=== PATIENT | female | born 1935 | race Caucasian/White ===

== ENCOUNTER 2023-03-08 10:21 | Inpatient (IN) | payer OTHER, SELFPAY ==
[2023-03-08] VITALS (18 sets, daily range): BP systolic 133–162; BP diastolic 59–99; PULSE 57–113; RESP 16–32; TEMP 36.2–37.2; O2SAT 91–100; BMI 21.8
--- NOTE | ~2023-03-08 | US_ITS ---
EXAMINATION: US venous doppler [facility] DATE: 03/09/2023 10:40 INDICATION: Bilateral lower limb swelling TECHNIQUE: Grayscale ultrasound images without and with compression and Doppler ultrasound images of the bilateral lower extremity veins were obtained. COMPARISON: None. FINDINGS: The visualized portions of right common femoral vein, profunda (deep) femoral vein, femoral vein, pop liteal vein, posterior tibial veins, peroneal veins, gastrocnemius vein and greater saphenous vein ou tflow are patent. The visualized portions of left common femoral vein, profunda femoral vein, femoral vein, popliteal v ein, posterior tibial veins, peroneal veins, gastrocnemius vein and greater saphenous vein outflow ar e patent. IMPRESSION: 1. No deep venous thrombosis in either lower limb. Reviewed, dictated and finalized at location A.
--- NOTE | ~2023-03-08 | XR_ITS ---
EXAMINATION: XR chest 1V portable DATE: 03/08/2023 11:29 INDICATION: Shortness of breath. TECHNIQUE: A single frontal view of the chest was obtained. COMPARISON: Chest single view 10/21/2018, chest CT 06/03/2019 FINDINGS: The patient is rotated to her left. There are peripheral interstitial opacities in the lung s bilaterally. There are airspace opacities at the lung bases. No pleural effusion or pneumothorax. C ardiomegaly is noted. The central pulmonary arteries are enlarged, consistent with pulmonary arterial hypertension. There is a large hiatal hernia. IMPRESSION: 1. Peripheral interstitial opacities in the lungs and airspace opacities at the lung bases, likely ch ronic lung disease and atelectasis. Pneumonia cannot be excluded. 2. Large hiatal hernia. 3. Cardiomegaly. Reviewed, dictated and finalized at location A. IMPRESSION: 1. Peripheral interstitial opacities in the lungs and airspace opacities at the lung bases, likely chronic lung disease and atelectasis. Pneumonia cannot be e xcluded. 2. Large hiatal hernia. 3. Cardiomegaly.
--- NOTE | 2023-03-08 10:40 | ECG_ITS ---
Measurements Intervals [place] Rate: 111 P: -29 WY: 169 QRS: -18 QRSD: 89 T: -33 QT: 343 QTc: 467 Interpretive Statements SINUS TACHYCARDIA VOLTAGE CRITERIA FOR LVH NONSPECIFIC T-WAVE ABNORMALITY Electronically Signed On 03-08-2023 13:02:36 CDT by Ariel Blankenship M.D.
--- NOTE | 2023-03-08 10:58 | ED.SOB ---
HPI - SOB/Dyspnea General Chief Complaint: Shortness of Breath/Dyspnea Stated Complaint: SOB, tachycardia Time Seen by Provider: 03/08/23 10:31 Source: patient, EMS and RN notes reviewed Mode of arrival: EMS Limitations: other (poor historian) History of Present Illness HPI Narrative: This is an 87 year old female with history of chronic respiratory failure on 3 L NC who presents for eveluation of shortness of breath. PAtient states she has been having difficulty breathing for 1 few days. She reports cough mostly in the morning. She denies chest pain. She was given duoneb by EMS for her shortness of breath. She denies fever or chills. She states she has pain to bilateral ribs intermittently with coughing. She also has bilateral ankle swelling. Related Data Home Medications Medication Instructions Recorded Confirmed acetaminophen 325 mg tablet 650 mg PO Q6H PRN Pain (Scale 03/08/23 03/08/23 Score 1-3) albuterol sulfate 90 mcg/actuation 2 puff inhalation QID PRN 03/08/23 03/08/23 aerosol inhaler Shortness Of Breath allopurinol 100 mg tablet 100 mg PO DAILY 03/08/23 03/08/23 alprazolam 0.25 mg tablet (Xanax) 0.25 mg PO TID 03/08/23 03/08/23 alprazolam 0.5 mg tablet (Xanax) 0.5 mg PO TID 03/08/23 03/08/23 aluminum-mag hydroxide-simethicone 15 ml PO QID PRN Acid Reflux 03/08/23 03/08/23 200 mg-200 mg-20 mg/5 mL oral susp artificial tears with lanolin eye 1 applic EACH EYE Q1-4H PRN Dry 03/08/23 03/08/23 ointment Eye(S) bisacodyl 10 mg rectal suppository 10 mg RECTAL DAILY PRN Constipation 03/08/23 03/08/23 clopidogrel 75 mg tablet 75 mg PO DAILY 03/08/23 03/08/23 clotrimazole-betamethasone 1 1 applic topical BID PRN Dry Skin 03/08/23 03/08/23 %-0.05 % topical cream cyanocobalamin (vitamin B-12) 1,000 mcg PO DAILY 03/08/23 03/08/23 1,000 mcg tablet ferrous sulfate 325 mg (65 mg 325 mg PO DAILY 03/08/23 03/08/23 iron) tablet fluticasone propionate 50 2 spray intranasal DAILY 03/08/23 03/08/23 mcg/actuation nasal spray,suspension (Flonase Allergy Relief) furosemide 20 mg tablet 20 mg PO DAILY 03/08/23 03/08/23 guaifenesin 100 mg/5 mL oral liquid 200 mg PO Q4H PRN Congestion 03/08/23 03/08/23 hydrocodone 5 mg-acetaminophen 325 1 tablet PO HS 03/08/23 03/08/23 mg tablet ipratropium 0.5 mg-albuterol 3 mg 3 ml inhalation Q6H PRN Shortness 03/08/23 03/08/23 (2.5 mg base)/3 mL nebulization Of Breath soln levothyroxine 100 mcg tablet 100 mcg PO 0600 03/08/23 03/08/23 melatonin 3 mg tablet 3 mg PO HS 03/08/23 03/08/23 metoprolol succinate 100 mg 100 mg PO DAILY 03/08/23 03/08/23 tablet,extended release 24 hr multivitamin with minerals (Daily 1 tablet PO DAILY 03/08/23 03/08/23 Multivitamin-Minerals tablet) nitroglycerin 0.4 mg sublingual 0.4 mg sublingual Q5-15M PRN Chest 03/08/23 03/08/23 tablet Pain olopatadine 0.1 % eye drops 1 drp EACH EYE DAILY 03/08/23 03/08/23 omeprazole 20 mg tablet,delayed 20 mg PO 0600 03/08/23 03/08/23 release potassium chloride 20 mEq 40 meq PO DAILY 03/08/23 03/08/23 tablet,extended release sennosides 8.6 mg tablet (senna) 8.6 mg PO HS 03/08/23 03/08/23 sertraline 50 mg tablet 50 mg PO DAILY 03/08/23 03/08/23 simethicone 80 mg chewable tablet 80 mg PO DAILY PRN Abdominal 03/08/23 03/08/23 Discomfort sodium chloride 0.65 % nasal spray 2 spray intranasal Q2H PRN Dry 03/08/23 03/08/23 aerosol Nasal Passages tolterodine 2 mg tablet 2 mg PO DAILY 03/08/23 03/08/23 Allergies Allergy/AdvReac Type Severity Reaction Status Date / Time codeine Allergy Unknown Unknown Verified 03/08/23 15:16 lovastatin Allergy Unknown Verified 03/08/23 15:37 Penicillins Allergy Unknown Verified 03/08/23 15:37 Contrast Media Allergy Unknown Unknown Uncoded 06/26/21 15:33 Review of Systems Constitutional: Constitutional: Denies weakness Cardiovascular: Cardiovascular: Denies syncope, Denies rapid heart rate, Denies irregular heart rhythm, Denies leg edema and Reports dyspnea Re
[2023-03-08 11:01] LABS: Basophils Absolute Auto 0.1 K/mm3 (0.0-0.1); Basophils Percent Auto 0.6 % (0.2-1.2); Eosinophils Absolute Auto 0.2 K/mm3 (0-0.3); Eosinophils Percent Auto 2.4 % (0-4.4); Hematocrit 37.7 % (37.0-47.0); Hemoglobin 11.4 g/dL (12.0-15.0); Immature Granulocyte Absolute 0.02 K/mm3 (0.00-0.031); Immature Granulocyte Percent A 0.3 % (0-0.5); Lymphocytes Absolute Auto 2.08 K/mm3 (0.9-3.2); Lymphocytes Percent Auto 26.2 % (18.3-44.2); Mean Corpuscular HGB Conc 30.2 g/dl (32-36); Mean Corpuscular Hemoglobin 31.1 pg (26-34); Mean Platelet Volume 11.5 fl (7.4-10.4); Monocytes Absolute Auto 0.6 K/mm3 (0.1-0.6); Monocytes Percent Auto 7.1 % (2.6-8.5); Neutrophils Percent Auto 63.4 % (45.5-73.1); Platelet Count Result 170 k/mm3 (150-375); Red Blood Count 3.66 M/mm3 (4.2-5.4); Red Cell Distribution Width 13.6 % (11.5-14.5); White Blood Count 7.9 K/mm3 (4.5-10.0)
[2023-03-08 11:09] LABS: Prothrombin Time 13.5 Seconds (11.1-14.7)
[2023-03-08 11:11] LABS: Partial Thromboplastin Time 24.7 SECONDS (22.3-36.8)
[2023-03-08 11:12] LABS: Alveolar/Arterial O2 Gradient 76.6 mmHg; Base Excess ABG 3.9 mEq/l (+/-2.0); Carboxyhemoglobin 0.6 % THb (0-2.0); Fractional Inspired Oxygen 32 %; HCO3 ABG 28.3 mEq/l (22.0-26.0); Methemoglobin ABG 0.2 %THb (0-1.5); Oxygen Content ABG 17.5 %vol (16.0-22.0); Oxygen Saturation ABG 97.9 % (95.0-100.0); Oxyhemoglobin 96.6 % THb (90.0-100.0); PCO2 ABG 41.9 mmHg (35.0-45.0); PO2 ABG 102.5 mmHg (80.0-100.0); Reduced Hemoglobin 2.6 %THb (0-5.0); Total Hemoglobin 12.8 g/dL (12.0-18.0); pH ABG 7.448 (7.350-7.450)
[2023-03-08 11:12] LABS: Alanine Aminotransferase 14 U/L (6-35); Albumin Level 3.8 g/dL (3.5-5.1); Alkaline Phosphatase 62 U/L (38-126); Anion Gap 5 mmol/L (8-16); Aspartate Amino Transferase 30 U/L (14-36); Bilirubin,Total 0.5 mg/dL (0.2-1.3); Blood Urea Nitrogen 21 mg/dL (7-17); Calcium 9.9 mg/dL (8.4-10.2); Carbon Dioxide 33 mmol/L (22-30); Chloride 100 mmol/L (98-107); Estimated CRCL calculation 35 ml/min; Estimated Glomerular Filt Rate > 60; Glucose 143 mg/dL (65-110); Potassium 3.7 mmol/L (3.4-5.0); Sodium 138 mmol/L (137-145)
[2023-03-08 11:14] LABS: Device NASAL CANNULA; Modified Allen's Test Pass; Site Drawn LEFT RADIAL
[2023-03-08 11:28] LABS: NT Pro B Type Natriuretic Pept 4730 pg/mL (19.9-100); Troponin I 0.139 ng/mL (0.000-0.034)
[2023-03-08 11:35] LABS: Influenza A QL RT-PCR Negative (Negative); Influenza B QL RT-PCR Negative (Negative); SARS-CoV-2 RNA PCR Negative (Negative)
[2023-03-08] MEDS: FUROSEMIDE INJ 40 MG/4 ML VIAL IV PUSH ×2 (11:41→20:31)
[2023-03-08] MEDS: METOPROLOL TARTRATE INJ 5 MG/5 ML VIAL IV PUSH (11:41)
--- NOTE | 2023-03-08 11:58 | PC.NURSE ---
Purewik placed for incontinence and patient comfort after given Lasix.
[2023-03-08 13:15] LABS: Glucose Point of Care 131 mg/dl (65-105)
--- NOTE | 2023-03-08 13:59 | ADMGEN ---
This patient, Zoya Cantor, was admitted to IMU Room 203-01. Patient/family oriented to hospital policies and general routines including ID bracelet, bed and alarms, visiting hours, pain management, procedures, bathroom and other care routines, personal items, smoking policy, room service/diet, and visiting hours. Information on how to activate the Rapid Response Team has been discussed. Patient/Family are encouraged to report perceived risks to care and to ask questions if they do not understand what they are told or what they should do.
[2023-03-08 14:08] LABS: Troponin I 0.114 ng/mL (0.000-0.034)
--- NOTE | 2023-03-08 14:18 | PM.IMHP ---
H&P: HPI History of Present Illness Date/Time: 03/08/23 14:00 Chief Complaint: Shortness of breath and rapid heart rate. Narrative: This is a very pleasant 87-year-old female with chronic respiratory failure on oxygen, chronic obstructive pulmonary disease, coronary artery disease, diastolic congestive heart failure, paroxysmal supraventricular tachycardia, hypertension, hyperlipidemia, hypothyroidism, and anxiety who presented to the emergency department via EMS for evaluation of shortness of breath and rapid heart rate. The patient provides the following history. She does not sleep well most nights. It is apparently the norm for her to have indigestion when going to bed and that keeps her awake for awhile. She will eventually drift off to sleep though she will wake up at least once a night to use the restroom. Most of the time when she gets up at night to go to the bathroom her heart starts to beat rapidly and it is sometimes a few minutes or couple of hours before it slows down. She feels anxious when her heart is racing and turned she does not fall back asleep. Last night her heart started to race even before she got up to go to the bathroom and she was having difficulties getting into slow down (sometime she is able to get it to slow down if she lies on her right side and takes slow, deep breaths). Her heart continued to race even after taking her morning medications and when she reported that she was feeling more short of breath she was sent in for evaluation. EKG on arrival showed a sinus tachycardia however the ED physician thought she may have gone into atrial fibrillation for brief period of time. IV Lopressor 5 mg x 1 was given with improvement in her heart rate. Vital signs have been stable since arrival. Labs were significant for a troponin of 0.139 and a proBNP of 4730. IV Lasix as well and she is being admitted in this setting for further monitoring. Review of Systems Review of Systems: Twelve systems were reviewed. No fever, chills, or sweats. No recent cold or flu symptoms. She has remained she denies that her roommate has been sick. No exertional chest pain or pleuritic pain. Endorses paroxysmal nocturnal dyspnea. Occasional omaira ankle edema which is unchanged. No known history of sleep apnea. Except as documented, all other systems were reviewed and are negative. [facility] Past Medical History Medical History (Updated 03/08/23 @ 20:35 by Xochilt Hoyos PA-C) Anxiety Atrial fibrillation Chronic obstructive pulmonary disease Chronic respiratory failure with hypoxia, on home oxygen therapy Coronary artery disease With reported history of myocardial infarction. Degenerative joint disease Diastolic congestive heart failure Gout Hyperlipidemia Hypertension Hypothyroidism Osteoporosis Paroxysmal supraventricular tachycardia Scoliosis Surgical History Surgical History History of right hip replacement Family History Family History Father , age 41. Acute myocardial infarction Social History Social History Social History: Surrogate medical decision maker: Anup Cantor, son. Code status: Do not resuscitate. Smoking packs per day: 0.5 Smoking cigarettes per day: 10.0 Years smoked: 60 Smoking pack-years: 30.00 Smoking status: Never smoker Alcohol intake: never Substance use: never Lack of Transportation: No Lack of Food: Never True Current Housing: I Have Housing Concerned About Future Housing: No Difficulty Paying Gas/Electric Bills: No Difficulty Paying for Meds: No Currently Unemployed: No Education: High School Diploma/GED Difficulty w/ Childcare or Family Care: No Spiritual care concerns: No Meds Home Medications and Allergies Home Medications Medication Instructions Recorded
[2023-03-08 16:52] LABS: Glucose Point of Care 92 mg/dl (65-105)
[2023-03-08 17:53] LABS: Troponin I 0.163 ng/mL (0.000-0.034)
[2023-03-08 20:28] LABS: Glucose Point of Care 133 mg/dl (65-105)
[2023-03-08] MEDS: MELATONIN 3 MG TABLET PO (20:30)
[2023-03-08] MEDS: SENNOSIDES 8.6 MG TABLET PO (20:30)
[2023-03-08] MEDS: HYDROcodone/acetaminophen (*CRX) 5-325 MG TABLET 1 TAB PO (20:31)
[2023-03-08] MEDS: ALPRAZolam (*CRX) 0.5 MG TABLET PO (21:03)
[2023-03-08] MEDS: ALPRAZolam (*CRX) 0.25 MG TABLET PO (21:04)
[2023-03-09] VITALS (16 sets, daily range): BP systolic 117–143; BP diastolic 55–83; PULSE 54–118; RESP 16–24; TEMP 36.1–36.6; O2SAT 91–100
[2023-03-09] MEDS: LEVOTHYROXINE SODIUM 100 MCG TABLET PO (05:47)
[2023-03-09] MEDS: PANTOPRAZOLE 40 MG TABLET PO (05:47)
[2023-03-09 06:18] LABS: Basophils Percent Auto 0.6 % (0.2-1.2); Eosinophils Absolute Auto 0.2 K/mm3 (0-0.3); Eosinophils Percent Auto 3.2 % (0-4.4); Hemoglobin 11.7 g/dL (12.0-15.0); Immature Granulocyte Absolute 0.04 K/mm3 (0.00-0.031); Immature Granulocyte Percent A 0.6 % (0-0.5); Lymphocytes Absolute Auto 2.05 K/mm3 (0.9-3.2); Lymphocytes Percent Auto 28.5 % (18.3-44.2); Mean Corpuscular HGB Conc 30.8 g/dl (32-36); Mean Corpuscular Volume 100.8 fl (80-100); Mean Platelet Volume 11.5 fl (7.4-10.4); Monocytes Absolute Auto 0.7 K/mm3 (0.1-0.6); Monocytes Percent Auto 9.2 % (2.6-8.5); Neutrophils Absolute Auto 4.2 K/mm3 (1.3-6.7); Neutrophils Percent Auto 57.9 % (45.5-73.1); Platelet Count Result 174 k/mm3 (150-375); Red Blood Count 3.77 M/mm3 (4.2-5.4); Red Cell Distribution Width 13.7 % (11.5-14.5); White Blood Count 7.2 K/mm3 (4.5-10.0)
[2023-03-09 06:34] LABS: Alanine Aminotransferase 13 U/L (6-35); Albumin Level 3.8 g/dL (3.5-5.1); Alkaline Phosphatase 63 U/L (38-126); Aspartate Amino Transferase 33 U/L (14-36); Bilirubin,Total 0.6 mg/dL (0.2-1.3); Blood Urea Nitrogen 21 mg/dL (7-17); Calcium 10.4 mg/dL (8.4-10.2); Carbon Dioxide > 40 mmol/L (22-30); Chloride 97 mmol/L (98-107); Estimated CRCL calculation 28 ml/min; Estimated Glomerular Filt Rate 53; Glucose 105 mg/dL (65-110); Magnesium 1.6 mg/dL (1.6-2.3); Potassium 3.9 mmol/L (3.4-5.0); Sodium 139 mmol/L (137-145)
[2023-03-09 07:28] LABS: Glucose Point of Care 112 mg/dl (65-105)
[2023-03-09 07:37] LABS: Free T4 Free Thyroxine Reflex 0.99 ng/dL (0.78-2.19)
[2023-03-09 08:17] LABS: Total Triiodothyronine (T3) 0.96 NG/ML (0.97-1.69)
[2023-03-09] MEDS: allopurinoL 100 MG TABLET PO (08:52)
[2023-03-09] MEDS: FUROSEMIDE 20 MG TABLET PO (08:52)
[2023-03-09] MEDS: CLOPIDOGREL BISULFATE 75 MG TABLET PO (08:52)
[2023-03-09] MEDS: FERROUS SULFATE 325 MG TABLET DR PO (08:52)
[2023-03-09] MEDS: POTASSIUM CHLORIDE 20 MEQ ER TABLET 40 MEQ PO (08:52)
[2023-03-09] MEDS: THERAPEUTIC MULTIVITAMINS/MINERALS TAB (*BKC) 1 TABLET PO (08:52)
[2023-03-09] MEDS: TOLTERODINE TARTRATE 2 MG TABLET PO (08:52)
[2023-03-09] MEDS: ALPRAZolam (*CRX) 0.5 MG TABLET PO ×3 (08:52→17:21)
[2023-03-09] MEDS: METOPROLOL SUCCINATE EXT REL 100 MG TABCR PO (08:52)
[2023-03-09] MEDS: ALPRAZolam (*CRX) 0.25 MG TABLET PO ×3 (08:52→17:21)
[2023-03-09] MEDS: CYANOCOBALAMIN 1,000 MCG TABLET 1000 MCG PO (08:52)
[2023-03-09] MEDS: SERTRALINE HCL 50 MG TABLET PO (08:52)
[2023-03-09] MEDS: FLUTICASONE PROPIONATE 0.05% NA SPR 16 GM BTL (*BKC) 2 SPRAY NASAL (08:53)
[2023-03-09] MEDS: OLOPATADINE 0.1% OPHTH SOLN 5 ML BTL 1 DROP EACH EYE (08:53)
[2023-03-09] MEDS: ENOXAPARIN 40 MG/0.4 ML SYRINGE SUB-Q (08:53)
--- NOTE | 2023-03-09 09:07 | PM.CNCAR ---
Assessment and Plan Assessment and plan (1) Atrial tachycardia: Code(s): I47.19 - Other supraventricular tachycardia Status: Acute Assessment and Plan: Review of telemetry and prior medical records clearly indicate paroxysmal supraventricular tachycardia most likely atrial tachycardia. I do not see or have documented evidence of atrial fibrillation despite suspicion mentioned years ago in the record. Either way, patient had previously been deemed a poor anticoagulation candidate given her fall risk, advanced age and questionable presence of AFib. Continue telemetry for now. Increase metoprolol succinate to 125 mg daily. Monitor tolerance closely. Further up titrate as warranted. ED very cautious with additional antiarrhythmic and or AV node blocking agents given her advanced age yet this may be necessary as she has had frequent recurrent episodes of symptomatic atrial tachycardia. Consider EP evaluation as an outpatient although conservative management would be recommended given her DNR status. As she has already received Toprol XL 100 mg daily. Will give an additional 25 mg daily and observe tolerance. May increase to 150 mg daily starting tomorrow if she continues to have frequent episodes and tolerates this well otherwise. TSH mildly elevated 8.5. This certainly can contribute to increased arrhythmia risk. Levothyroxine management/adjustment per primary service. Continue to monitor electrolytes closely. Check magnesium. Potassium stable thus far. (2) Elevated troponin: Code(s): R79.89 - Other specified abnormal findings of blood chemistry Status: Acute Assessment and Plan: Mild relatively flat troponin elevation without evidence of acute coronary syndrome and/or plaque rupture most likely consistent with type 2 infarction in setting of recurrent tachyarrhythmia with SVT/atrial tachycardia, known underlying CAD and demand ischemia. Patient is not reporting anginal symptoms nor is her ECG consistent with acute ischemic changes. Continue clopidogrel 75 mg daily antiarrhythmic therapy. DVT prophylaxis. She is apparently intolerant to statin therapy. Repeat 2D echocardiogram to assess LV function, wall motion abnormalities, valve pathology pulmonary pressures. Recommendation to follow after review. We have no plans for invasive angiography or ischemic workup as she is not complaining of anginal symptoms and given her DNR status and advanced age. (3) Chronic respiratory failure with hypoxia, on home oxygen therapy: Code(s): J96.11 - Chronic respiratory failure with hypoxia; Z99.81 - Dependence on supplemental oxygen Status: Acute Assessment and Plan: Continue O2 supplementation. Bronchodilator therapy is indicated per primary service. (4) Congestive heart failure: Qualifiers: Heart failure type: diastolic Heart failure chronicity: chronic Qualified Code(s): I50.32 - Chronic diastolic (congestive) heart failure Code(s): I50.9 - Heart failure, unspecified Status: Acute Assessment and Plan: Despite elevated proBNP patient clinically does not appear to be significantly volume overload. I would recommend caution in this regard. May continue Lasix 20 mg daily which is part of her outpatient regimen. Continue conservative management. Monitor volume status. (5) Coronary artery disease: Qualifiers: Coronary Disease-Associated Artery/Lesion type: [place] artery [place] vs. transplanted heart: [place] heart Associated angina: without angina Qualified Code(s): I25.10 - Atherosclerotic heart disease of [place] coronary artery without angina pectoris Code(s): I25.10 - Atherosclerotic heart disease of [place] coronary artery without angina pectoris Status: Acute Assessment and Plan: Patient has reported history of underlying CAD managed medically. She is not presenting with symptoms suggestive acute coronary syndrome. Mild elevated t
[2023-03-09] MEDS: METOPROLOL SUCCINATE EXT REL 25 MG TABCR PO (11:35)
[2023-03-09 12:33] LABS: Glucose Point of Care 155 mg/dl (65-105)
--- NOTE | 2023-03-09 12:59 | PM.IMPN ---
Progress Note: A&P Assessment and Plan (1) Atrial tachycardia: Code(s): I47.19 - Other supraventricular tachycardia Status: Acute (2) Congestive heart failure: Qualifiers: Heart failure chronicity: chronic Heart failure type: diastolic Qualified Code(s): I50.32 - Chronic diastolic (congestive) heart failure Code(s): I50.9 - Heart failure, unspecified Status: Acute (3) Atrial fibrillation: Code(s): I48.91 - Unspecified atrial fibrillation Status: Acute (4) Tachycardia: Code(s): R00.0 - Tachycardia, unspecified Status: Acute (5) Elevated troponin: Code(s): R79.89 - Other specified abnormal findings of blood chemistry Status: Acute (6) Coronary artery disease: Qualifiers: Coronary Disease-Associated Artery/Lesion type: [place] artery [place] vs. transplanted heart: [place] heart Associated angina: without angina Qualified Code(s): I25.10 - Atherosclerotic heart disease of [place] coronary artery without angina pectoris Code(s): I25.10 - Atherosclerotic heart disease of [place] coronary artery without angina pectoris Status: Acute (7) Diastolic congestive heart failure: Code(s): I50.30 - Unspecified diastolic (congestive) heart failure Status: Acute (8) Hypothyroidism: Code(s): E03.9 - Hypothyroidism, unspecified Status: Acute (9) Chronic respiratory failure with hypoxia, on home oxygen therapy: Code(s): J96.11 - Chronic respiratory failure with hypoxia; Z99.81 - Dependence on supplemental oxygen Status: Acute (10) Chronic obstructive pulmonary disease: Code(s): J44.9 - Chronic obstructive pulmonary disease, unspecified Status: Acute (11) Hyperlipidemia: Qualifiers: Hyperlipidemia type: mixed hyperlipidemia Qualified Code(s): E78.2 - Mixed hyperlipidemia Code(s): E78.5 - Hyperlipidemia, unspecified Status: Acute (12) Hypertension: Qualifiers: Hypertension type: primary hypertension Qualified Code(s): I10 - Essential (primary) hypertension Code(s): I10 - Essential (primary) hypertension Status: Acute Plan 1. Atrial tachycardia Discussed pt with cardiology, appreciate their consultation They feel this is atrial tach, vs. MAT or afib. Currently on metop 100 ER. This has been increased to metop 125 ER, with possible increase to 150 ER May need amiodarone or additional antiarrhythmic agents At 87, unlikely to develop pulmonary fibrosis or hypothyroidism with long-term use- however, she does have risk factors with COPD and a minor abnormality currently with her TSH/total t3. according to uptodate, she does not need treatment for subclinical hypothyroidism. her t3 may be decreased due to chronic illness - in this case, possible demand ischemia vs mild CHF May need EP evaluation outpt per cardiology she continues to go in and out of atrial tachycardia on exam, and has recurrent symptoms. She reports only xanax helps her--she should probably wean this down, because xanax can have rebound anxiety- which triggers her atrial tachycardia 2. Elevated troponin Most likely demand ischemia 2 to atrial tachycardia with hx of underlying CAD Pt does not report angina and does not have EKG findings of ischemia Already on plavix and beta jany F/u echo. However, per cardiology, will likely not intervene on a WMA with her DNR status and advanced age Will not order repeat because it will not be intervened on 3. Chronic resp. failure with hypoxia on home o2 ct albuterol/duoneb/fluticasone 4. Elevated bnp likely some degree of chf with atrial tachycardia f/u echo does not appear volume overloaded, however has interstitial pulm opacities on cxr on lasix 20 mg/day 5. Hx of CAD ct plavix, f/u echo has an iv contrast allergy does not have ACS symptoms per cardiology is a medical management pt, hence will not f/u troponins + they are also mild 6
[2023-03-09 18:16] LABS: Glucose Point of Care 99 mg/dl (65-105)
[2023-03-09] MEDS: HYDROcodone/acetaminophen (*CRX) 5-325 MG TABLET 1 TAB PO (20:26)
[2023-03-09] MEDS: MELATONIN 3 MG TABLET PO (20:26)
[2023-03-09] MEDS: SENNOSIDES 8.6 MG TABLET PO (20:26)
[2023-03-09 20:47] LABS: Glucose Point of Care 100 mg/dl (65-105)
[2023-03-10] VITALS (17 sets, daily range): BP systolic 113–151; BP diastolic 54–89; PULSE 48–109; RESP 14–24; TEMP 36.3–36.6; O2SAT 94–100
[2023-03-10] MEDS: LEVOTHYROXINE SODIUM 100 MCG TABLET PO (05:41)
[2023-03-10] MEDS: PANTOPRAZOLE 40 MG TABLET PO (05:41)
[2023-03-10 08:40] LABS: Glucose Point of Care 93 mg/dl (65-105)
[2023-03-10] MEDS: ENOXAPARIN 40 MG/0.4 ML SYRINGE SUB-Q (08:51)
[2023-03-10] MEDS: FUROSEMIDE 20 MG TABLET PO (08:51)
[2023-03-10] MEDS: CYANOCOBALAMIN 1,000 MCG TABLET 1000 MCG PO (08:52)
[2023-03-10] MEDS: ALPRAZolam (*CRX) 0.25 MG TABLET PO ×3 (08:52→16:27)
[2023-03-10] MEDS: METOPROLOL SUCCINATE EXT REL 100 MG TABCR PO (08:52)
[2023-03-10] MEDS: allopurinoL 100 MG TABLET PO (08:53)
[2023-03-10] MEDS: POTASSIUM CHLORIDE 20 MEQ ER TABLET 40 MEQ PO (08:53)
[2023-03-10] MEDS: ALPRAZolam (*CRX) 0.5 MG TABLET PO ×3 (08:53→16:27)
[2023-03-10] MEDS: SERTRALINE HCL 50 MG TABLET PO (08:53)
[2023-03-10] MEDS: TOLTERODINE TARTRATE 2 MG TABLET PO (08:53)
[2023-03-10] MEDS: METOPROLOL SUCCINATE EXT REL 25 MG TABCR PO (08:53)
[2023-03-10] MEDS: CLOPIDOGREL BISULFATE 75 MG TABLET PO (08:54)
[2023-03-10] MEDS: OLOPATADINE 0.1% OPHTH SOLN 5 ML BTL 1 DROP EACH EYE (08:54)
[2023-03-10] MEDS: THERAPEUTIC MULTIVITAMINS/MINERALS TAB (*BKC) 1 TABLET PO (08:54)
[2023-03-10] MEDS: FLUTICASONE PROPIONATE 0.05% NA SPR 16 GM BTL (*BKC) 2 SPRAY NASAL (08:54)
[2023-03-10] MEDS: FERROUS SULFATE 325 MG TABLET DR PO (08:54)
--- NOTE | 2023-03-10 09:00 | ECHO_ITS ---
Patient Info Name: Zoya Cantor Age: 87 years : 1935 Gender: Female Ht: 62 in Wt: 118 lbs BSA: 1.53 m2 HR: 50 bpm BP: 120 / 81 mmHg Heart Rhythm: Sinus Rhythm Technical Quality: Good Exam Date: 03/10/2023 9:46 AM Exam Location: [facility] Card Pulmonary Patient Status: Inpatient Admit Date: 03/08/2023 Staff Ordering Physician: Nick Reid MD Side Laster Tack: Maria Luisa Dejesus RDCS Attending Provider: Francis Valdez MD Referring Physician: Franklin RICHARDSON; Exam Type: CA echo doppler color flow Study Info Indications - tacchycardia, sob, elevated troponin Complete two-dimensional, color flow and Doppler transthoracic echocardiogram is performed. Summary 1. Complete two-dimensional, color flow and Doppler transthoracic echocardiogram is performed. 2. Left ventricular chamber dimension is normal. 3. There is mildly increased left ventricular wall thickness. 4. Left ventricular systolic function is severely reduced, estimated at 25-30%. 5. The septal wall is hypokinetic. 6. Right ventricular systolic function is reduced. 7. Left atrial chamber dimension is moderately enlarged. 8. There is moderate aortic valve regurgitation. 9. There is mild mitral valve regurgitation. 10. The aortic root size at the sinus of Valsalva is dilated. Left Ventricle The septal wall is hypokinetic. Left ventricular chamber dimension is normal. Left ventricular systolic function is severely reduced, estimated at 25-30%. There is mildly increased left ventricular wall thickness. Right Ventricle Right ventricular chamber dimension is normal. Right ventricular systolic function is reduced. Left Atria Left atrial chamber dimension is moderately enlarged. Right Atria Right atrial chamber dimension is normal. Atrial Septum Intact interatrial septum visualized by color flow imaging. Aortic Valve The aortic valve is not well visualized. There is no aortic valve stenosis. There is moderate aortic valve regurgitation. There is moderate aortic valve calcification. Pulmonic Valve The pulmonic valve is not well visualized. Mitral Valve There is mild mitral valve regurgitation. Tricuspid Valve There is trace tricuspid valve regurgitation. Pericardium/Pleural There is no pericardial effusion. Inferior Vena Cava Normal inferior vena cava with >50% collapse upon inspiration consistent with normal right atrial pressure, 3 mmHg. Aorta The aortic root size at the sinus of Valsalva is dilated. Left Ventricular Outflow Tract Name Value Normal LVOT 2D LVOT Diameter 2.0 cm LVOT Doppler LVOT Peak Gradient 1 mmHg LVOT Mean Gradient 1 mmHg LVOT VTI 15 cm LVOT VTI/AV VTI Ratio 0.6 LVOT Stroke Volume 48 ml LVOT CO 3.4 l/min LVOT CI 2.2 l/min/m2 Pulmonic Valve Name Value Normal RVOT Doppler
--- NOTE | 2023-03-10 10:22 | PM.PNCARD ---
Progress Note: A&P Assessment and Plan (1) Atrial tachycardia: Code(s): I47.19 - Other supraventricular tachycardia Status: Acute Assessment and Plan: Review of telemetry and prior medical records clearly indicate paroxysmal supraventricular tachycardia most likely atrial tachycardia. No atrial fibrillation seen on telemetry. -Continue telemetry for now. -Increase metoprolol succinate to 125 mg daily. Further up titrate as warranted with close monitoring for bradycardia -Be very cautious with additional antiarrhythmic and or AV node blocking agents given her advanced age yet this may be necessary as she has had frequent recurrent episodes of symptomatic atrial tachycardia. -Consider EP evaluation as an outpatient although conservative management would be recommended given her DNR status. -Continue to monitor electrolytes closely. TSH mildly elevated 8.5. This certainly can contribute to increased arrhythmia risk. Levothyroxine management/adjustment per primary service. (2) Elevated troponin: Code(s): R79.89 - Other specified abnormal findings of blood chemistry Status: Acute Assessment and Plan: Mild relatively flat troponin elevation without evidence of acute coronary syndrome and/or plaque rupture most likely consistent with type 2 infarction in setting of recurrent tachyarrhythmia with SVT/atrial tachycardia, known underlying CAD and demand ischemia. Patient is not reporting anginal symptoms nor is her ECG consistent with acute ischemic changes. Continue clopidogrel 75 mg daily antiarrhythmic therapy. She has a statin intolerance. Echo is pending. (3) Chronic respiratory failure with hypoxia, on home oxygen therapy: Code(s): J96.11 - Chronic respiratory failure with hypoxia; Z99.81 - Dependence on supplemental oxygen Status: Acute Assessment and Plan: Continue O2 supplementation. Bronchodilator therapy is indicated per primary service. (4) Congestive heart failure: Qualifiers: Heart failure chronicity: chronic Heart failure type: diastolic Qualified Code(s): I50.32 - Chronic diastolic (congestive) heart failure Code(s): I50.9 - Heart failure, unspecified Status: Acute Assessment and Plan: Despite elevated proBNP patient clinically does not appear to be significantly volume overload. I would recommend caution in this regard. May continue Lasix 20 mg daily which is part of her outpatient regimen. Continue conservative management. Monitor volume status. (5) Coronary artery disease: Qualifiers: Associated angina: without angina Coronary Disease-Associated Artery/Lesion type: [place] artery [place] vs. transplanted heart: [place] heart Qualified Code(s): I25.10 - Atherosclerotic heart disease of [place] coronary artery without angina pectoris Code(s): I25.10 - Atherosclerotic heart disease of [place] coronary artery without angina pectoris Status: Acute Assessment and Plan: Patient has reported history of underlying CAD managed medically. She is not presenting with symptoms suggestive acute coronary syndrome. Mild elevated troponin as above appears to be secondary to demand ischemia and not an acute coronary process. Continue clopidogrel 75 mg daily. She is intolerant to statins. Echocardiogram pending. She also has an IV contrast allergy. (6) Hypertension: Qualifiers: Hypertension type: primary hypertension Qualified Code(s): I10 - Essential (primary) hypertension Code(s): I10 - Essential (primary) hypertension Status: Acute Assessment and Plan: Stable. Continue metoprolol succinate but increased to 125 mg daily. (7) Hyperlipidemia: Qualifiers: Hyperlipidemia type: mixed hyperlipidemia Qualified Code(s): E78.2 - Mixed hyperlipidemia Code(s): E78.5 - Hyperlipidemia, unspecified Status: Acute Assessment and Plan: Apparent intolerance to
[2023-03-10 12:31] LABS: Glucose Point of Care 106 mg/dl (65-105)
[2023-03-10 16:46] LABS: Glucose Point of Care 123 mg/dl (65-105)
--- NOTE | 2023-03-10 17:21 | PM.IMPN ---
Progress Note: A&P Assessment and Plan (1) Subclinical hypothyroidism: Code(s): E03.8 - Other specified hypothyroidism Status: Acute (2) Atrial tachycardia: Code(s): I47.19 - Other supraventricular tachycardia Status: Acute (3) Congestive heart failure: Qualifiers: Heart failure chronicity: chronic Heart failure type: diastolic Qualified Code(s): I50.32 - Chronic diastolic (congestive) heart failure Code(s): I50.9 - Heart failure, unspecified Status: Acute (4) Tachycardia: Code(s): R00.0 - Tachycardia, unspecified Status: Acute (5) Elevated troponin: Code(s): R79.89 - Other specified abnormal findings of blood chemistry Status: Acute (6) Coronary artery disease: Qualifiers: Coronary Disease-Associated Artery/Lesion type: [place] artery [place] vs. transplanted heart: [place] heart Associated angina: without angina Qualified Code(s): I25.10 - Atherosclerotic heart disease of [place] coronary artery without angina pectoris Code(s): I25.10 - Atherosclerotic heart disease of [place] coronary artery without angina pectoris Status: Acute (7) Diastolic congestive heart failure: Code(s): I50.30 - Unspecified diastolic (congestive) heart failure Status: Acute (8) Hypothyroidism: Code(s): E03.9 - Hypothyroidism, unspecified Status: Acute (9) Chronic respiratory failure with hypoxia, on home oxygen therapy: Code(s): J96.11 - Chronic respiratory failure with hypoxia; Z99.81 - Dependence on supplemental oxygen Status: Acute (10) Chronic obstructive pulmonary disease: Code(s): J44.9 - Chronic obstructive pulmonary disease, unspecified Status: Acute (11) Hyperlipidemia: Qualifiers: Hyperlipidemia type: mixed hyperlipidemia Qualified Code(s): E78.2 - Mixed hyperlipidemia Code(s): E78.5 - Hyperlipidemia, unspecified Status: Acute (12) Hypertension: Qualifiers: Hypertension type: primary hypertension Qualified Code(s): I10 - Essential (primary) hypertension Code(s): I10 - Essential (primary) hypertension Status: Acute Plan 1. Atrial tachycardia Discussed pt with cardiology, appreciate their consultation They feel this is atrial tach Currently on metop 100 ER. This has been increased to metop 125 ER, with possible increase to 150 ER May need amiodarone or additional antiarrhythmic agents At 87, unlikely to develop pulmonary fibrosis or hypothyroidism with long-term use- however, she does have risk factors with COPD Her TSH/T3 abnormality is subclinical hypothyroidism and does not need to be treated. It needs to be rechecked at a time her chronic medical problems are stable. according to uptodate, she does not need treatment for subclinical hypothyroidism. her t3 may be decreased due to chronic illness - in this case, possible demand ischemia vs mild CHF May need EP evaluation outpt per cardiology she continues to go in and out of atrial tachycardia on exam, and has recurrent symptoms. She reports only xanax helps her--she should probably wean this down, because xanax can have rebound anxiety- which triggers her atrial tachycardia This is likely the extent of her management of atrial tachycardia, barring EP evaluation. 2. Elevated troponin The troponin was not trended down to negative, and this low level or even a higher level will unlikely be acted on per cardiology Most likely demand ischemia 2 to atrial tachycardia with hx of underlying CAD Pt does not report angina and does not have EKG findings of ischemia, which is good (does not have ACS) Already on plavix and beta jany F/u echo. However, per cardiology, will likely not intervene on a WMA with her DNR status and advanced age Unclear why echo was ordered, as WMA will not be intervened on. Echo shows concerning ischemic area at the septum and also RV systolic dysfunction too. f/u lipid p
[2023-03-10 20:20] LABS: Glucose Point of Care 98 mg/dl (65-105)
[2023-03-10] MEDS: MELATONIN 3 MG TABLET PO (20:28)
[2023-03-10] MEDS: SENNOSIDES 8.6 MG TABLET PO (20:29)
[2023-03-10] MEDS: SACUBITRIL/VALSARTAN 24-26 MG TABLET 1 TAB PO (20:29)
[2023-03-10] MEDS: HYDROcodone/acetaminophen (*CRX) 5-325 MG TABLET 1 TAB PO (20:29)
[2023-03-11] VITALS (11 sets, daily range): BP systolic 111–129; BP diastolic 53–83; PULSE 47–109; RESP 16–20; TEMP 36.2–36.5; O2SAT 94–100
[2023-03-11 05:09] LABS: Cholesterol 238 mg/dL (0-200); HDL Direct 46 mg/dL; Triglycerides 80 mg/dL (<150)
[2023-03-11 05:20] LABS: LDL Cholesterol Direct 136 mg/dL
[2023-03-11] MEDS: LEVOTHYROXINE SODIUM 100 MCG TABLET PO (05:28)
[2023-03-11] MEDS: PANTOPRAZOLE 40 MG TABLET PO (05:28)
[2023-03-11 08:08] LABS: Glucose Point of Care 88 mg/dl (65-105)
[2023-03-11] MEDS: CYANOCOBALAMIN 1,000 MCG TABLET 1000 MCG PO (08:40)
[2023-03-11] MEDS: METOPROLOL SUCCINATE EXT REL 25 MG TABCR PO (08:40)
[2023-03-11] MEDS: FERROUS SULFATE 325 MG TABLET DR PO (08:40)
[2023-03-11] MEDS: TOLTERODINE TARTRATE 2 MG TABLET PO (08:40)
[2023-03-11] MEDS: ALPRAZolam (*CRX) 0.25 MG TABLET PO ×3 (08:40→17:34)
[2023-03-11] MEDS: METOPROLOL SUCCINATE EXT REL 100 MG TABCR PO (08:40)
[2023-03-11] MEDS: ALPRAZolam (*CRX) 0.5 MG TABLET PO ×3 (08:40→17:34)
[2023-03-11] MEDS: POTASSIUM CHLORIDE 20 MEQ ER TABLET 40 MEQ PO (08:41)
[2023-03-11] MEDS: SERTRALINE HCL 50 MG TABLET PO (08:41)
[2023-03-11] MEDS: CLOPIDOGREL BISULFATE 75 MG TABLET PO (08:41)
[2023-03-11] MEDS: ASPIRIN 81 MG ENTERIC TABLET PO (08:41)
[2023-03-11] MEDS: FUROSEMIDE 20 MG TABLET PO (08:41)
[2023-03-11] MEDS: allopurinoL 100 MG TABLET PO (08:41)
[2023-03-11] MEDS: THERAPEUTIC MULTIVITAMINS/MINERALS TAB (*BKC) 1 TABLET PO (08:41)
[2023-03-11] MEDS: SACUBITRIL/VALSARTAN 24-26 MG TABLET 1 TAB PO ×2 (08:41→21:03)
[2023-03-11] MEDS: OLOPATADINE 0.1% OPHTH SOLN 5 ML BTL 1 DROP EACH EYE (08:42)
[2023-03-11] MEDS: FLUTICASONE PROPIONATE 0.05% NA SPR 16 GM BTL (*BKC) 2 SPRAY NASAL (08:42)
[2023-03-11] MEDS: ENOXAPARIN 40 MG/0.4 ML SYRINGE SUB-Q (08:49)
--- NOTE | 2023-03-11 11:14 | PM.IMPN ---
Progress Note: A&P Assessment and Plan (1) Subclinical hypothyroidism: Code(s): E03.8 - Other specified hypothyroidism Status: Acute (2) Atrial tachycardia: Code(s): I47.19 - Other supraventricular tachycardia Status: Acute (3) Congestive heart failure: Qualifiers: Heart failure chronicity: chronic Heart failure type: diastolic Qualified Code(s): I50.32 - Chronic diastolic (congestive) heart failure Code(s): I50.9 - Heart failure, unspecified Status: Acute (4) Tachycardia: Code(s): R00.0 - Tachycardia, unspecified Status: Acute (5) Elevated troponin: Code(s): R79.89 - Other specified abnormal findings of blood chemistry Status: Acute (6) Coronary artery disease: Qualifiers: Coronary Disease-Associated Artery/Lesion type: [place] artery [place] vs. transplanted heart: [place] heart Associated angina: without angina Qualified Code(s): I25.10 - Atherosclerotic heart disease of [place] coronary artery without angina pectoris Code(s): I25.10 - Atherosclerotic heart disease of [place] coronary artery without angina pectoris Status: Acute (7) Diastolic congestive heart failure: Code(s): I50.30 - Unspecified diastolic (congestive) heart failure Status: Acute (8) Hypothyroidism: Code(s): E03.9 - Hypothyroidism, unspecified Status: Acute (9) Chronic respiratory failure with hypoxia, on home oxygen therapy: Code(s): J96.11 - Chronic respiratory failure with hypoxia; Z99.81 - Dependence on supplemental oxygen Status: Acute (10) Chronic obstructive pulmonary disease: Code(s): J44.9 - Chronic obstructive pulmonary disease, unspecified Status: Acute (11) Hyperlipidemia: Qualifiers: Hyperlipidemia type: mixed hyperlipidemia Qualified Code(s): E78.2 - Mixed hyperlipidemia Code(s): E78.5 - Hyperlipidemia, unspecified Status: Acute (12) Hypertension: Qualifiers: Hypertension type: primary hypertension Qualified Code(s): I10 - Essential (primary) hypertension Code(s): I10 - Essential (primary) hypertension Status: Acute Plan 1. Atrial tachycardia Discussed pt with cardiology, appreciate their consultation They feel this is atrial tach Currently on metop 100 ER. This has been increased to metop 125 ER, with possible increase to 150 ER May need amiodarone or additional antiarrhythmic agents At 87, unlikely to develop pulmonary fibrosis or hypothyroidism with long-term use- however, she does have risk factors with COPD Her TSH/T3 abnormality is subclinical hypothyroidism and does not need to be treated. It needs to be rechecked at a time her chronic medical problems are stable. according to uptodate, she does not need treatment for subclinical hypothyroidism. her t3 may be decreased due to chronic illness - in this case, possible demand ischemia vs mild CHF May need EP evaluation outpt per cardiology she continues to go in and out of atrial tachycardia on exam, and has recurrent symptoms. She reports only xanax helps her--she should probably wean this down, because xanax can have rebound anxiety- which triggers her atrial tachycardia This is likely the extent of her management of atrial tachycardia, barring EP evaluation. 2. Elevated troponin The troponin was not trended down to negative, and this low level or even a higher level will unlikely be acted on per cardiology Most likely demand ischemia 2 to atrial tachycardia with hx of underlying CAD Pt does not report angina and does not have EKG findings of ischemia, which is good (does not have ACS) Already on plavix and beta jany F/u echo. However, per cardiology, will likely not intervene on a WMA with her DNR status and advanced age Unclear why echo was ordered, as WMA will not be intervened on. Echo shows concerning ischemic area at the septum and also RV systolic dysfunction too. f/u lipid p
[2023-03-11] MEDS: ACETAMINOPHEN 325 MG TABLET 650 MG PO (11:32)
[2023-03-11 12:01] LABS: Glucose Point of Care 99 mg/dl (65-105)
--- NOTE | 2023-03-11 16:18 | ECG_ITS ---
Measurements Intervals [place] Rate: 49 P: 31 [place]: 182 QRS: -1 QRSD: 85 T: -1 QT: 381 QTc: 344 Interpretive Statements SINUS BRADYCARDIA VOLTAGE CRITERIA FOR LVH [MEETS CRITERIA IN ONE OF: R(aVL), S(V1), R(V5), R(V5/V6)+S(V1)] NONSPECIFIC ST & T-WAVE ABNORMALITY ABNORMAL ECG COMPARED TO ECG 03/08/2023 10:33:03 SINUS BRADYCARDIA NOW PRESENT Electronically Signed On 03-11-2023 18:39:45 CDT by Nick Reid M.D.
--- NOTE | 2023-03-11 17:12 | PM.PNCARD ---
Progress Note: A&P Assessment and Plan (1) Atrial tachycardia: Code(s): I47.19 - Other supraventricular tachycardia Status: Acute Assessment and Plan: Review of telemetry and prior medical records clearly indicate paroxysmal supraventricular tachycardia most likely atrial tachycardia. No atrial fibrillation seen on telemetry. -Continue telemetry for now. -Increase metoprolol succinate to 125 mg daily. Further up titrate as warranted with close monitoring for bradycardia -Be very cautious with additional antiarrhythmic and or AV node blocking agents given her advanced age yet this may be necessary as she has had frequent recurrent episodes of symptomatic atrial tachycardia. -Consider EP evaluation as an outpatient although conservative management would be recommended given her DNR status and her desire to not pursue invasive procedures. -Continue to monitor electrolytes closely. 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 Heart rate low 100s in atrial tachycardia, patient is asymptomatic in this regard. (2) Cardiomyopathy: Code(s): I42.9 - Cardiomyopathy, unspecified Status: Acute Assessment and Plan: New diagnosis severe LV dysfunction EF 25-30%. As discussed, etiology unclear although reported history of underlying CAD details are unknown. Patient is not exhibiting anginal symptoms. Conservative management. She does not wish to proceed with invasive testing or surgical procedures. Continue aspirin and clopidogrel as antiplatelet therapy. Continue Toprol XL. Continue Entresto 24/26 mg twice daily. (3) Elevated troponin: Code(s): R79.89 - Other specified abnormal findings of blood chemistry Status: Acute Assessment and Plan: Mild relatively flat troponin elevation without evidence of acute coronary syndrome and/or plaque rupture most likely consistent with type 2 infarction in setting of recurrent tachyarrhythmia with SVT/atrial tachycardia, known underlying CAD and demand ischemia. Patient is not reporting anginal symptoms nor is her ECG consistent with acute ischemic changes. Continue clopidogrel 75 mg daily antiarrhythmic therapy. She has a statin intolerance. Echo with severe LV systolic dysfunction new diagnosis EF 25-30%. Moderate AI, mild MR. Conservative medical management. Summary ? 1. Complete two-dimensional, color flow and Doppler transthoracic echocardiogram is performed. ? 2. Left ventricular chamber dimension is normal. ? 3. There is mildly increased left ventricular wall thickness. ? 4. Left ventricular systolic function is severely reduced, estimated at 25-30%. ? 5. The septal wall is hypokinetic. ? 6. Right ventricular systolic function is reduced. ? 7. Left atrial chamber dimension is moderately enlarged. ? 8. There is moderate aortic valve regurgitation. ? 9. There is mild mitral valve regurgitation. ? 10. The aortic root size at the sinus of Valsalva is dilated. (4) Chronic respiratory failure with hypoxia, on home oxygen therapy: Code(s): J96.11 - Chronic respiratory failure with hypoxia; Z99.81 - Dependence on supplemental oxygen Status: Acute Assessment and Plan: Continue O2 supplementation. Bronchodilator therapy managed by primary service. (5) Congestive heart failure: Qualifiers: Heart failure chronicity: chronic Heart failure type: diastolic Qualified Code(s): I50.32 - Chronic diastolic (congestive) heart failure Code(s): I50.9 - Heart failure, unspecified Status: Acute Assessment and Plan: Patient remains euvolemic clinically. Monitor volume status. i would recommend caution in this regard. Continue Lasix 20 mg daily. Continue conservative management. Monitor volume status. Recommended addition of Entresto 12/13 mg twice daily for CM support, conservative management. (6) Coronary artery di
[2023-03-11 18:02] LABS: Glucose Point of Care 92 mg/dl (65-105)
[2023-03-11] MEDS: MELATONIN 3 MG TABLET PO (21:03)
[2023-03-11] MEDS: HYDROcodone/acetaminophen (*CRX) 5-325 MG TABLET 1 TAB PO (21:03)
[2023-03-11] MEDS: SENNOSIDES 8.6 MG TABLET PO (21:03)
[2023-03-11 21:08] LABS: Glucose Point of Care 95 mg/dl (65-105)
[2023-03-12] VITALS (7 sets, daily range): BP systolic 97–120; BP diastolic 55–62; PULSE 49–107; RESP 14–28; TEMP 36.3–36.4; O2SAT 93–100
[2023-03-12] MEDS: LEVOTHYROXINE SODIUM 100 MCG TABLET PO (06:49)
[2023-03-12] MEDS: PANTOPRAZOLE 40 MG TABLET PO (06:49)
[2023-03-12 08:12] LABS: Glucose Point of Care 100 mg/dl (65-105)
[2023-03-12] MEDS: FUROSEMIDE 20 MG TABLET PO (08:22)
[2023-03-12] MEDS: CYANOCOBALAMIN 1,000 MCG TABLET 1000 MCG PO (08:22)
[2023-03-12] MEDS: SACUBITRIL/VALSARTAN 24-26 MG TABLET 1 TAB PO (08:23)
[2023-03-12] MEDS: ALPRAZolam (*CRX) 0.5 MG TABLET PO ×2 (08:23→12:16)
[2023-03-12] MEDS: allopurinoL 100 MG TABLET PO (08:23)
[2023-03-12] MEDS: METOPROLOL SUCCINATE EXT REL 100 MG TABCR PO (08:23)
[2023-03-12] MEDS: POTASSIUM CHLORIDE 20 MEQ ER TABLET 40 MEQ PO (08:23)
[2023-03-12] MEDS: METOPROLOL SUCCINATE EXT REL 25 MG TABCR PO (08:23)
[2023-03-12] MEDS: TOLTERODINE TARTRATE 2 MG TABLET PO (08:23)
[2023-03-12] MEDS: ALPRAZolam (*CRX) 0.25 MG TABLET PO ×2 (08:23→12:16)
[2023-03-12] MEDS: SERTRALINE HCL 50 MG TABLET PO (08:23)
[2023-03-12] MEDS: CLOPIDOGREL BISULFATE 75 MG TABLET PO (08:23)
[2023-03-12] MEDS: ASPIRIN 81 MG ENTERIC TABLET PO (08:24)
[2023-03-12] MEDS: ENOXAPARIN 40 MG/0.4 ML SYRINGE SUB-Q (08:24)
[2023-03-12] MEDS: THERAPEUTIC MULTIVITAMINS/MINERALS TAB (*BKC) 1 TABLET PO (08:24)
[2023-03-12] MEDS: OLOPATADINE 0.1% OPHTH SOLN 5 ML BTL 1 DROP EACH EYE (08:24)
[2023-03-12] MEDS: FLUTICASONE PROPIONATE 0.05% NA SPR 16 GM BTL (*BKC) 2 SPRAY NASAL (08:24)
[2023-03-12] MEDS: FERROUS SULFATE 325 MG TABLET DR PO (08:24)
[2023-03-12 09:36] LABS: Anion Gap 4 mmol/L (8-16); Blood Urea Nitrogen 35 mg/dL (7-17); Calcium 10.2 mg/dL (8.4-10.2); Carbon Dioxide 34 mmol/L (22-30); Chloride 98 mmol/L (98-107); Estimated CRCL calculation 24 ml/min; Estimated Glomerular Filt Rate 43; Glucose 125 mg/dL (65-110); Potassium 4.4 mmol/L (3.4-5.0); Sodium 136 mmol/L (137-145)
--- NOTE | 2023-03-12 11:09 | PM.DS ---
DS: Admitting Diagnosis Discharge Date March 12, 2023 Admitting Diagnosis Shortness of breath and CHF DS: Discharge Diagnosis Discharge Diagnosis (1) Subclinical hypothyroidism: Code(s): E03.8 - Other specified hypothyroidism Status: Acute (2) Atrial tachycardia: Code(s): I47.19 - Other supraventricular tachycardia Status: Acute (3) Congestive heart failure: Qualifiers: Heart failure chronicity: chronic Heart failure type: diastolic Qualified Code(s): I50.32 - Chronic diastolic (congestive) heart failure Code(s): I50.9 - Heart failure, unspecified Status: Acute (4) Tachycardia: Code(s): R00.0 - Tachycardia, unspecified Status: Acute (5) Elevated troponin: Code(s): R79.89 - Other specified abnormal findings of blood chemistry Status: Acute (6) Coronary artery disease: Qualifiers: Coronary Disease-Associated Artery/Lesion type: [place] artery [place] vs. transplanted heart: [place] heart Associated angina: without angina Qualified Code(s): I25.10 - Atherosclerotic heart disease of [place] coronary artery without angina pectoris Code(s): I25.10 - Atherosclerotic heart disease of [place] coronary artery without angina pectoris Status: Acute (7) Diastolic congestive heart failure: Code(s): I50.30 - Unspecified diastolic (congestive) heart failure Status: Acute (8) Hypothyroidism: Code(s): E03.9 - Hypothyroidism, unspecified Status: Acute (9) Chronic respiratory failure with hypoxia, on home oxygen therapy: Code(s): J96.11 - Chronic respiratory failure with hypoxia; Z99.81 - Dependence on supplemental oxygen Status: Acute (10) Chronic obstructive pulmonary disease: Code(s): J44.9 - Chronic obstructive pulmonary disease, unspecified Status: Acute (11) Hyperlipidemia: Qualifiers: Hyperlipidemia type: mixed hyperlipidemia Qualified Code(s): E78.2 - Mixed hyperlipidemia Code(s): E78.5 - Hyperlipidemia, unspecified Status: Acute (12) Hypertension: Qualifiers: Hypertension type: primary hypertension Qualified Code(s): I10 - Essential (primary) hypertension Code(s): I10 - Essential (primary) hypertension Status: Acute Plan 1. Atrial tachycardia Discussed pt with cardiology, appreciate their consultation They feel this is atrial tach Currently on metop 100 ER. This has been increased to metop 125 ER, with possible increase to 150 ER May need amiodarone or additional antiarrhythmic agents At 87, unlikely to develop pulmonary fibrosis or hypothyroidism with long-term use- however, she does have risk factors with COPD Her TSH/T3 abnormality is subclinical hypothyroidism and does not need to be treated. It needs to be rechecked at a time her chronic medical problems are stable. according to uptodate, she does not need treatment for subclinical hypothyroidism. her t3 may be decreased due to chronic illness - in this case, possible demand ischemia vs mild CHF May need EP evaluation outpt per cardiology she continues to go in and out of atrial tachycardia on exam, and has recurrent symptoms. She reports only xanax helps her--she should probably wean this down, because xanax can have rebound anxiety- which triggers her atrial tachycardia This is likely the extent of her management of atrial tachycardia, barring EP evaluation. 2. Elevated troponin The troponin was not trended down to negative, and this low level or even a higher level will unlikely be acted on per cardiology Most likely demand ischemia 2 to atrial tachycardia with hx of underlying CAD Pt does not report angina and does not have EKG findings of ischemia, which is good (does not have ACS) Already on plavix and beta jany F/u echo. However, per cardiology, will likely not intervene on a WMA with her DNR status and advanced age Unclear why echo was ordered, as WMA will not be in
[2023-03-12] MEDS: DOCUSATE SODIUM LIQ 100 MG/10 ML UDC PO (11:14)
[2023-03-12 12:29] LABS: Glucose Point of Care 112 mg/dl (65-105)
[2023-03-12 13:08] LABS: SARS-CoV-2 RNA PCR Negative (Negative)
== END 2023-03-12 14:45 | DRG 308 ==
LOC: ANHED 10:39 → ANHIMU 03-09 15:13
PROVIDERS: Internal Medicine; Physician Assistant; Admitting Provider Internal Medicine; Emergency Provider General Practice; PCP Internal Medicine; Visit Provider Chiropractor
DX: I47.19 Other supraventricular tachycardia (principal); I50.33 Acute on chronic diastolic (congestive) heart failure; I24.89 Other forms of acute ischemic heart disease; J96.11 Chronic respiratory failure with hypoxia; I42.9 Cardiomyopathy, unspecified; I48.20 Chronic atrial fibrillation, unspecified; I25.10 Atherosclerotic heart disease of native coronary artery without angina pectoris; I11.0 Hypertensive heart disease with heart failure; J44.9 Chronic obstructive pulmonary disease, unspecified; E78.5 Hyperlipidemia, unspecified; E03.9 Hypothyroidism, unspecified; M81.0 Age-related osteoporosis without current pathological fracture; M41.9 Scoliosis, unspecified; F41.9 Anxiety disorder, unspecified; I25.2 Old myocardial infarction; Z96.641 Presence of right artificial hip joint; Z20.822 Contact with and (suspected) exposure to COVID-19; Z11.52 Encounter for screening for COVID-19; Z99.81 Dependence on supplemental oxygen; Z79.02 Long term (current) use of antithrombotics/antiplatelets; Z66 Do not resuscitate
CPT/HCPCS: 36415; 36600; 71045; 80048; 80053; 80061; 82375; 82805; 82948; 83050; 83605; 83735; 83880; 84439; 84443; 84480; 84484; 85025; 85610; 85730; 87635; 87636; 93005; 93306; 93970; 94762; 96374; 96375; 99285; A9270; J1650; J1940

== ENCOUNTER 2023-09-07 18:43 | Inpatient (IN) | payer MEDICARE, MEDICAID, SELFPAY ==
[2023-09-07] VITALS (12 sets, daily range): BP systolic 75–123; BP diastolic 56–84; PULSE 77–179; RESP 18–38; O2SAT 94–99
--- NOTE | ~2023-09-07 | XR_ITS ---
EXAMINATION: XR chest 1V portable DATE: 09/07/2023 19:22 INDICATION: Tachycardia TECHNIQUE: A single frontal view of the chest was obtained on 2 radiographs. COMPARISON: None. FINDINGS: The patient is rotated to her right, which decreases sensitivity and specificity. There are airspace opacities throughout right hemithorax and at the left lung base. There is mild scarring at the lung apices. Calcified pulmonary nodules are consistent with old edematous disease. There are mod erate-sized right and small left pleural effusions. No pneumothorax. The heart size is obscured. IMPRESSION: 1. Airspace opacities in right lung and at left lung base, consistent with atelectasis versus pneumon ia. 2. Moderate-sized right and small left pleural effusions. Reviewed, dictated and finalized at location E. IMPRESSION: 1. Airspace opacities in right lung and at left lung base, consistent with atel ectasis versus pneumonia. 2. Moderate-sized right and small left pleural effusions.
--- NOTE | ~2023-09-07 | XR_ITS ---
EXAMINATION: XR pelvis 1-2V DATE: 09/07/2023 20:01 INDICATION: Fall. TECHNIQUE: An anteroposterior view of the pelvis on 2 radiographs was obtained. COMPARISON: None. FINDINGS: The patient is rotated to her right. There is a total right hip arthroplasty in near-anatom ic alignment. No fracture. No periprosthetic lucency to suggest loosening or infection. No fracture. There is severe left hip osteoarthritis. Osteitis pubis is noted. There is severe lumbar spondylosis. IMPRESSION: 1. Total right hip arthroplasty in near-anatomic alignment. 2. Severe left hip osteoarthritis. Reviewed, dictated and finalized at location E.
--- NOTE | ~2023-09-07 | XR_ITS ---
EXAMINATION: XR_[id number]_CR DATE: 09/07/2023 20:01 INDICATION: Fall. TECHNIQUE: 2 views of right knee were obtained. COMPARISON: None. FINDINGS: Bone alignment is normal. No fracture. Osteopenia is noted. There is severe osteoarthritis of lateral and patellofemoral compartments and moderate osteoarthritis of medial compartment. No knee joint effusion. IMPRESSION: 1. Severe right knee osteoarthritis. Reviewed, dictated and finalized at location E.
[2023-09-07] MEDS: SODIUM CHLORIDE 0.9% IV 500 ML 999 ML IV CONT (19:03)
[2023-09-07] MEDS: ADENOSINE IV SOLN 6 MG/2 ML VIAL IV PUSH (19:03)
--- NOTE | 2023-09-07 19:03 | PC.NURSE ---
Adenosin 6mg given for heart rate.
[2023-09-07 19:26] LABS: Hematocrit 37.8 % (37.0-47.0); Hemoglobin 11.8 g/dL (12.0-15.0); Mean Corpuscular HGB Conc 31.2 g/dl (32-36); Mean Corpuscular Hemoglobin 31.2 pg (26-34); Mean Platelet Volume 11.2 fl (7.4-10.4); Platelet Count Result 346 k/mm3 (150-375); Red Blood Count 3.78 M/mm3 (4.2-5.4); Red Cell Distribution Width 14.2 % (11.5-14.5); White Blood Count 15.4 K/mm3 (4.5-10.0)
[2023-09-07 19:37] LABS: INR 1.1; Partial Thromboplastin Time 24.9 Seconds (22.3-36.8); Prothrombin Time 14.7 Seconds (11.1-14.7)
--- NOTE | 2023-09-07 19:44 | ED.FALL ---
HPI - Fall General Chief Complaint: Fall Stated Complaint: FALL, LEFT HIP PAIN Time Seen by Provider: 09/07/23 18:50 History of Present Illness HPI Narrative: Pt suffered ground level fall from commode at local [place]. Pt complained of right knee pain to EMS. Pt noted by EMS to have HR in 160's-170's. Pt has no complaints of CP or knee pain now. Pt is DNR. Related Data Home Medications Medication Instructions Recorded Confirmed acetaminophen 325 mg tablet 650 mg PO Q6H PRN Pain (Scale 03/08/23 03/08/23 Score 1-3) albuterol sulfate 90 mcg/actuation 2 puff inhalation QID PRN 03/08/23 03/08/23 aerosol inhaler Shortness Of Breath allopurinol 100 mg tablet 100 mg PO DAILY 03/08/23 03/08/23 aluminum-mag hydroxide-simethicone 15 ml PO QID PRN Acid Reflux 03/08/23 03/08/23 200 mg-200 mg-20 mg/5 mL oral susp artificial tears with lanolin eye 1 applic EACH EYE Q1-4H PRN Dry 03/08/23 03/08/23 ointment Eye(S) bisacodyl 10 mg rectal suppository 10 mg RECTAL DAILY PRN Constipation 03/08/23 03/08/23 clopidogrel 75 mg tablet 75 mg PO DAILY 03/08/23 03/08/23 clotrimazole-betamethasone 1 1 applic topical BID PRN Dry Skin 03/08/23 03/08/23 %-0.05 % topical cream cyanocobalamin (vitamin B-12) 1,000 mcg PO DAILY 03/08/23 03/08/23 1,000 mcg tablet ferrous sulfate 325 mg (65 mg 325 mg PO DAILY 03/08/23 03/08/23 iron) tablet fluticasone propionate 50 2 spray intranasal DAILY 03/08/23 03/08/23 mcg/actuation nasal spray,suspension (Flonase Allergy Relief) furosemide 20 mg tablet 20 mg PO DAILY 03/08/23 03/08/23 guaifenesin 100 mg/5 mL oral liquid 200 mg PO Q4H PRN Congestion 03/08/23 03/08/23 ipratropium 0.5 mg-albuterol 3 mg 3 ml inhalation Q6H PRN Shortness 03/08/23 03/08/23 (2.5 mg base)/3 mL nebulization Of Breath soln levothyroxine 100 mcg tablet 100 mcg PO 0600 03/08/23 03/08/23 melatonin 3 mg tablet 3 mg PO HS 03/08/23 03/08/23 multivitamin with minerals (Daily 1 tablet PO DAILY 03/08/23 03/08/23 Multivitamin-Minerals tablet) nitroglycerin 0.4 mg sublingual 0.4 mg sublingual Q5-15M PRN Chest 03/08/23 03/08/23 tablet Pain olopatadine 0.1 % eye drops 1 drp EACH EYE DAILY 03/08/23 03/08/23 omeprazole 20 mg tablet,delayed 20 mg PO 0600 03/08/23 03/08/23 release potassium chloride 20 mEq 40 meq PO DAILY 03/08/23 03/08/23 tablet,extended release sennosides 8.6 mg tablet (senna) 8.6 mg PO HS 03/08/23 03/08/23 sertraline 50 mg tablet 50 mg PO DAILY 03/08/23 03/08/23 simethicone 80 mg chewable tablet 80 mg PO DAILY PRN Abdominal 03/08/23 03/08/23 Discomfort sodium chloride 0.65 % nasal spray 2 spray intranasal Q2H PRN Dry 03/08/23 03/08/23 aerosol Nasal Passages tolterodine 2 mg tablet 2 mg PO DAILY 03/08/23 03/08/23 Allergies Allergy/AdvReac Type Severity Reaction Status Date / Time codeine Allergy Unknown Unknown Verified 03/08/23 15:16 lovastatin Allergy Unknown Verified 03/08/23 15:37 Penicillins Allergy Unknown Verified 03/08/23 15:37 Contrast Media Allergy Unknown Unknown Uncoded 06/26/21 15:33 contrast Allergy Unknown Uncoded 09/07/23 19:24 Review of Systems Review of Systems: ROS unobtainable: Yes unobtainable due to mental status PMFSH Past Medical History Medical History (Updated 09/07/23 @ 22:01 by Jessie Gong III, DO) Anxiety Atrial fibrillation Chronic obstructive pulmonary disease Chronic respiratory failure with hypoxia, on home oxygen therapy Coronary artery disease With reported history of myocardial infarction. Degenerative joint disease Diastolic congestive heart failure Gout Hyperlipidemia Hypertension Hypothyroidism Osteoporosis Paroxysmal supraventricular tachycardia Scoliosis Surgical History Surgical History History of right hip replacement Family History Family History Father , age 41. Acute myocardial infarction Social Hist
[2023-09-07 19:48] LABS: Band Neutrophils Percent 2 % (0-6); Lymphocytes Absolute Manual 1.69 K/mm3 (1.1-4.5); Monocytes Absolute Manual 0.92 K/mm3 (0.1-0.90); Monocytes Percent Manual 6 % (3-9); Neutrophils Absolute Manual 12.78 K/mm3 (1.7-7.2); Neutrophils Percent Manual 81 % (46-73); Total Cells Counted 100
[2023-09-07 19:49] LABS: Hypochromasia 1+; Platelet Estimate Adequate (Adequate); Schistocytes None Seen
[2023-09-07] MEDS: Please add drug allergy info to patient profile. 1 EACH XX (19:59)
[2023-09-07 20:10] LABS: Alanine Aminotransferase 13 U/L (6-35); Alkaline Phosphatase 84 U/L (38-126); Anion Gap 5 mmol/L (4-12); Aspartate Amino Transferase 27 U/L (14-36); Bilirubin,Total 0.5 mg/dL (0.2-1.3); Blood Urea Nitrogen 38 mg/dL (7-17); Calcium 9.9 mg/dL (8.4-10.2); Carbon Dioxide 24 mmol/L (22-30); Chloride 105 mmol/L (98-107); Estimated Glomerular Filt Rate 28; Glucose 119 mg/dL (65-110); Sodium 134 mmol/L (137-145)
[2023-09-07 20:25] LABS: NT Pro B Type Natriuretic Pept > 30000 pg/mL (19.9-100); Troponin I 0.818 ng/mL (0.000-0.034)
[2023-09-07] MEDS: SODIUM CHLORIDE 0.9% IV 1,000 ML 500 ML IV CONT (22:17)
[2023-09-07 22:39] LABS: Troponin I 0.787 ng/mL (0.000-0.034)
--- NOTE | 2023-09-07 22:51 | PC.NURSE ---
Patient's heart rate back in the 160s-170s. Dr. Ang lara.
[2023-09-07] MEDS: ESMOLOL HCL 100 MG/10 ML VIAL 30 MG IV PUSH (23:20)
--- NOTE | 2023-09-07 23:29 | PC.NURSE ---
Patient c/o severe abdominal pain and shortness of breath. Continuous fluids stopped, see MAR.
--- NOTE | 2023-09-07 23:51 | PM.IMHP ---
H&P: HPI History of Present Illness Date/Time: 09/07/23 23:51 Chief Complaint: Fall Narrative: 88-year-old female with a past medical history severe hearing loss, COPD with chronic hypoxic respiratory failure, chronic hypoxic respiratory failure on chronic home O2, diastolic heart failure, paroxysmal SVT and coronary artery disease who presented to the ER via EMS from [facility] after having an unwitnessed fall. Evidently patient was getting up to use the commode and fell. The the patient was complaining of knee pain so ER was EMS was contacted be of when EMS arrived to the facility patient heart rate was in the 160s 170s and was in SVT on the monitor. The patient stated that this was not unusual for in often happens but usually gets better when she takes her home meds. She states that she did take her home meds that day. Initially in the ER heart rate did improve after fluids. But she a did not see out of SVT were very long. Is she was given a dose of adenosine which briefly converted to sinus rhythm. The patient then went back into SVT. She was given a dose of esmolol which did not slower heart rate at all and dropped her blood pressure significantly. She at then converted on her own for a bit. But by that time the patient's blood pressures were in 70s and 80s systolic. Her maps were still 60-65. The patient was not reporting any chest pain but at the time my evaluation she stated that she is having constant heartburn which she states usually happens every night. She denies any eliciting or relieving factors. History was mildly to moderately affected due to the patient's degree of hearing loss. The patient is chronically incontinent denies any dysuria. UA was not obtained in the ER. She reports feeling cold but it was afebrile on presentation to the ER. She denies any nausea or vomiting. She states that she just wants to sleep. The patient was alert oriented x3 at the time of my evaluation. Shortly after accept the patient in admission the patient's heart rate did jump back up into the 160s and 170s. The patient then persistently remained in the 160s and 170s in her blood pressures were intermittently dipping down into the upper 60s in ranging between 65 and 95. Her mean arterial pressures for the most part were still remaining between 60 and 65. The patient was continuing to have good urine output. Patient was maintaining mentation. However as the night went on the patient did drop her pressures again so 1 attempt was made at cardioversion after sedation with etomidate 8 mg of etomidate. The patient tolerated the procedure well but again went into SVT. However blood pressures were improved after cardioversion and attempt to give beta-jany was made but then the patient became hypotensive again. We did call family members in. The patient's granddaughters arrived as we were unable to contact the patient's listed POA. But again the patient had requested that the daughter's be contacted in the case of an emergency instead of the son at the time of my evaluation. I went back down to the bedside to discuss patient's condition with family members. They agreed the patient does not want aggressive interventions such as central line. They do not want repeat attempts at cardioversion as they were unsuccessful. Patient is not tolerating rate controlling medications hypotension. Review of Systems Review of Systems: 10 systems were reviewed with pertinent positives and negatives per HPI. Except as documented in the HPI, all other systems were reviewed and are negative. [facility] Past Medical History Medical History Anxiety Atrial fibrillation Benzodiazepine dependence Chronic obstructive pulmonary disease Chronic respiratory failure with hypoxia, on home oxygen therapy Coronary artery disease With reported history of myocardial infarction. Degenerative joint disease Diastolic conge
[2023-09-08] VITALS (99 sets, daily range): BP systolic 56–115; BP diastolic 42–90; PULSE 69–184; RESP 0–33; TEMP 36.2–36.7; O2SAT 95–100
[2023-09-08 00:31] LABS: NT Pro B Type Natriuretic Pept > 30000 pg/mL (19.9-100)
[2023-09-08] MEDS: METOPROLOL TARTRATE INJ 5 MG/5 ML VIAL 2.5 MG IV PUSH (00:40)
[2023-09-08 02:54] LABS: Hematocrit 32.7 % (37.0-47.0); Hemoglobin 10.2 g/dL (12.0-15.0); Mean Corpuscular HGB Conc 31.2 g/dl (32-36); Mean Corpuscular Hemoglobin 31.4 pg (26-34); Mean Corpuscular Volume 100.6 fl (80-100); Mean Platelet Volume 11.1 fl (7.4-10.4); Platelet Count Result 306 k/mm3 (150-375); Red Blood Count 3.25 M/mm3 (4.2-5.4); Red Cell Distribution Width 14.2 % (11.5-14.5)
[2023-09-08 03:09] LABS: Alanine Aminotransferase 12 U/L (6-35); Alkaline Phosphatase 76 U/L (38-126); Anion Gap 6 mmol/L (4-12); Aspartate Amino Transferase 25 U/L (14-36); Bilirubin,Total 0.5 mg/dL (0.2-1.3); Blood Urea Nitrogen 37 mg/dL (7-17); Calcium 10.2 mg/dL (8.4-10.2); Carbon Dioxide 21 mmol/L (22-30); Chloride 110 mmol/L (98-107); Estimated Glomerular Filt Rate 33; Glucose 120 mg/dL (65-110); Potassium 4.4 mmol/L (3.4-5.0); Sodium 137 mmol/L (137-145)
[2023-09-08 03:11] LABS: Lactic Acid Reflex 1.3 mmol/L (0.7-2.0)
[2023-09-08 03:32] LABS: Troponin I 0.666 ng/mL (0.000-0.034)
[2023-09-08] MEDS: ETOMIDATE 20 MG/10 ML AMPUL 18 MG IV PUSH (03:40)
--- NOTE | 2023-09-08 03:56 | PC.NURSE ---
Cardioversion performed by Dr. Fry with use of 8 mg Etomidate IVP. After cardioversion, patient's heart rate remained in the 170s. Verbal order by Dr. Fry to give 2.5 mg Lopresser IVP.
--- NOTE | 2023-09-08 05:52 | PC.NURSE ---
Granddaughter at bedside. Unable to get ahold of POA at this time. Dr. Fry paged to discuss with family the plan of care.
[2023-09-08 08:22] LABS: Appearance Urine Cloudy (Clear); Bacteria Urine None Seen /hpf; Bilirubin Urine Negative (Negative); Blood Urine Negative (Negative); Color Urine Yellow (Yellow); Glucose Urine UA 2+ mg/dL (Negative); Hyaline Casts Urine Present /lpf; Ketones Urine Negative (Negative); Leukocyte Esterase Ur 1+ LEU/UL (Negative); Need Manual Microscopic Reviewed; Nitrate Urine Negative (Negative); Non Pathogenic Casts >20; Protein Urine Trace mg/dL (Negative); RBC Urine 0-2 /hpf (0-2); Specific Grav Ur 1.016 (1.001-1.035); Squamous Epithelial Cell Urine Few /hpf (Few); WBC Urine 21-50 /hpf (0-3); pH Urine 5.5 (5.0-9.0)
[2023-09-08 08:23] LABS: Add Urine Microscopic? YES
--- NOTE | 2023-09-08 08:24 | PC.NURSE ---
5070 Dr. Valdez was at bedside speaking with pt who is A/O x 3 and family and he explained to pt care to lower HR and also explained comfort care to pt and pt states I don't want any of that I want to be comfortable. I'm ready to get this over.
--- NOTE | 2023-09-08 09:28 | PM.IMPN ---
Progress Note: A&P Assessment and Plan (1) Nonsustained supraventricular tachycardia: Code(s): I47.10 - Supraventricular tachycardia, unspecified Status: Acute (2) Atrial flutter with rapid ventricular response: Code(s): I48.92 - Unspecified atrial flutter Status: Acute (3) Elevated troponin: Code(s): R79.89 - Other specified abnormal findings of blood chemistry Status: Acute (4) ISAURO (acute kidney injury): Code(s): N17.9 - Acute kidney failure, unspecified Status: Acute (5) Coronary artery disease: Qualifiers: Coronary Disease-Associated Artery/Lesion type: [place] artery [place] vs. transplanted heart: [place] heart Associated angina: without angina Qualified Code(s): I25.10 - Atherosclerotic heart disease of [place] coronary artery without angina pectoris Code(s): I25.10 - Atherosclerotic heart disease of [place] coronary artery without angina pectoris Status: Acute (6) Chronic respiratory failure with hypoxia, on home oxygen therapy: Code(s): J96.11 - Chronic respiratory failure with hypoxia; Z99.81 - Dependence on supplemental oxygen Status: Acute Plan Patient has decided to proceed with comfort measures and her decision is supported by her family present in the room. POA not available at this time to discuss. Suspect patient's condition will deteriorate quickly unless she spontaneously converts. Will move her to a medical bed and have Ativan and Morphine available for comfort. Hospice consult ordered. Continue IV fluids per mold yard worker note. Subjective Date/time seen: 09/08/23 09:28 Interval history: 88yo female with AFib, COPD, CAD and paroxysmal SVT here for a fall and found to have tachycardia. Called to the room for elevated HR. Upon speaking to the GD and patient, they stated the mold yard worker spoke to them about options of cardioversion, central line placement and including hospice. They decided for comfort measures The patient is oriented and voices desire to be kept comfortable b/c she feels 'tired'. GD in the room agrees. Unable to contact POA. Exam Narrative: AF 97.4 77/60 171 26 98% 2L Gen - NARD resting comfortably Chest - bibasilar crackles CV - tachycardic, regular. HR 160-170. Valsalva and carotid massage attempted without benefit. Abd - Soft, NT Ext - trace pedal edema Neuro - Alert and oriented x4. Hearing loss Psych - Nml mood and affect Skin - clammy. Objective Data Vital Signs Vital Signs: Vital Signs - 24 hr 09/07/23 18:43 09/07/23 19:04 09/07/23 19:35 Pulse Rate 170 H 79 165 H Respiratory Rate 35 H 38 H 18 Blood Pressure 86/68 L 84/64 L 75/56 L Pulse Oximetry 98 94 97 Oxygen Delivery Nasal Cannula Oxygen Flow Rate 2 09/07/23 21:07 09/07/23 22:07 09/07/23 22:11 Pulse Rate 77 79 78 Respiratory Rate 20 20 27 H Blood Pressure 85/56 L 99/59 L Pulse Oximetry 98 97 99 Oxygen Delivery Oxygen Flow Rate 09/07/23 22:15 09/07/23 22:16 09/07/23 22:30 Pulse Rate 77 79 79 Respiratory Rate 26 H 29 H 25 H Blood Pressure 86/57 L Pulse Oximetry 97 97 98 Oxygen Delivery Oxygen Flow Rate 09/07/23 22:51 09/07/23 23:20 09/07/23 23:31 Pulse Rate 171 H 179 H 166 H Respiratory Rate 21 H 26 H 24 H Blood Pressure 91/79 L 123/84 82/63 L Pulse Oximetry 99 98 99 Oxygen Delivery Oxygen Flow Rate 09/08/23 00:01 09/08/23 00:16 09/08/23 00:40 Pulse Rate 178 H 178 H 167 H Respiratory Rate 26 H 26 H Blood Pressure 89/70 L 56/47 L Pulse Oximetry 99 98 Oxygen Delivery Oxygen Flow Rate 09/08/23 00:24 09/08/23 00:30 09/08/23 00:31 Pulse Rate 176 H 180 H 178 H Respiratory Rate 10 L 22 H 26 H Blood Pressure 100/84 Pulse Oximetry 97 98 98 Oxygen Delivery Oxygen Flow Rate 09/08/23 00:33 09/08/23 00:37 09/08/23 00:40 Pulse Rate 184 H 176 H 175 H Respiratory Rate 28 H 24 H 24 H Blood Pressure 84/72 L 92/72 L 91/71 L Pulse Oximetry 99 97 97
--- NOTE | 2023-09-08 13:14 | PM.DS ---
DS: Admitting Diagnosis Discharge Date 09/08/23 Admitting Diagnosis Fall. Tachycardia DS: Discharge Diagnosis Discharge Diagnosis (1) Nonsustained supraventricular tachycardia: Code(s): I47.10 - Supraventricular tachycardia, unspecified Status: Acute (2) Atrial flutter with rapid ventricular response: Code(s): I48.92 - Unspecified atrial flutter Status: Acute (3) Elevated troponin: Code(s): R79.89 - Other specified abnormal findings of blood chemistry Status: Acute (4) ISAURO (acute kidney injury): Code(s): N17.9 - Acute kidney failure, unspecified Status: Acute (5) Coronary artery disease: Qualifiers: Associated angina: without angina Coronary Disease-Associated Artery/Lesion type: [place] artery [place] vs. transplanted heart: [place] heart Qualified Code(s): I25.10 - Atherosclerotic heart disease of [place] coronary artery without angina pectoris Code(s): I25.10 - Atherosclerotic heart disease of [place] coronary artery without angina pectoris Status: Acute (6) Chronic respiratory failure with hypoxia, on home oxygen therapy: Code(s): J96.11 - Chronic respiratory failure with hypoxia; Z99.81 - Dependence on supplemental oxygen Status: Acute DS: Summary Hospital Course Reason for hospitalization: 88yo female with AFib, COPD, CAD and paroxysmal SVT here for a fall and found to have tachycardia. Please see H&P for details Hospital Course: Patient was getting up to use the commode and fell.? The the patient was complaining of knee pain so EMS was contacted and they found SVT with the patient's heart rate was in the 160s. Initially in the ER heart rate did improve after fluids for a brief time. She was given adenosine which briefly converted to sinus rhythm but then went back into SVT.? She was given a dose of esmolol which did not slow heart rate at all and dropped her blood pressure significantly to the systolic 70-80 range. Heart rate remained elevated with poor BP. She was cardioverted but went back into SVT. The patient is alert and oriented and decided to proceed with comfort measures and her decision is supported by her family present in the room. POA not available at this time to discuss. Suspect patient's condition will deteriorate quickly unless she spontaneously converts. Hospice consult ordered. Patient was transitioned to hospice care. Status at Discharge Cognitive/behavioral status at discharge: unstable Time Spent with Patient Time attestation: Total time spent providing and/or coordinating discharge services: 40 minutes Time spent: Greater than 30 minutes Specific discharge activities: discussing end of life issues with patietn and family; arranging hospice with staff Exam Narrative: AF 97.4 77/60 171 26 98% 2L Gen - NARD resting comfortably Chest - bibasilar crackles CV - tachycardic, regular. HR 160-170. Valsalva and carotid massage attempted without benefit. Abd - Soft, NT Ext - trace pedal edema Neuro - Alert and oriented x4. Hearing loss Psych - Nml mood and affect Skin - clammy. DS: Data Data Completed and Pending Labs on day of discharge: Labs from last 24 hours 09/08/23 09/08/23 09/08/23 06:42 02:34 00:06 WBC 17.0 H RBC 3.25 L Hgb 10.2 L Hct 32.7 L MCV 100.6 H MCH 31.4 MCHC 31.2 L RDW 14.2 Plt Count 306 MPV 11.1 H Immature Gran % (Auto) Neut % (Auto) Lymph % (Auto) [place] % (Auto) Eos % (Auto) Baso % (Auto) Lymph # (Auto) [place] # (Auto) Eos # (Auto) Baso # (Auto) Abs Immat Gran (auto) Absolute Neuts (auto) Absolute Nucleated RBC Total Counted Neutrophils % (Manual) Band Neutrophils % Lymphocytes % (Manual) Monocytes % (Manual) Nucleated RBC % Abs Neuts (Manual) Abs Lymphs (Manual) Abs Monocytes (Manual) Platelet Estimate Hypochromasia Schistocytes PT INR APTT
--- NOTE | 2023-09-08 13:43 | PCCCNOTE ---
0830-CC called to the ED to speak with pt and family regarding hospice care. The patient prefers [facility] hospice. The information was called and faxed to [facility].
== END 2023-09-08 13:26 | disposition hospice, inpatient (51) | DRG 309 ==
LOC: ANHED 22:01 → ANHIMU 23:28 → ANH3MEDSUR 09-08 13:17 → ANHIMU 09-09 13:26
PROVIDERS: Admitting Provider Internal Medicine; Emergency Provider Emergency Medicine; PCP Internal Medicine; Visit Provider Internal Medicine
DX: I47.10 Supraventricular tachycardia, unspecified (principal); I50.32 Chronic diastolic (congestive) heart failure; J96.11 Chronic respiratory failure with hypoxia; N17.9 Acute kidney failure, unspecified; Z66 Do not resuscitate; E78.5 Hyperlipidemia, unspecified; E03.9 Hypothyroidism, unspecified; H91.90 Unspecified hearing loss, unspecified ear; I48.91 Unspecified atrial fibrillation; I48.92 Unspecified atrial flutter; I95.89 Other hypotension; J44.9 Chronic obstructive pulmonary disease, unspecified; I25.10 Atherosclerotic heart disease of native coronary artery without angina pectoris; I11.0 Hypertensive heart disease with heart failure; R32 Unspecified urinary incontinence; W19.XXXA Unspecified fall, initial encounter; Z99.81 Dependence on supplemental oxygen; Z87.891 Personal history of nicotine dependence; Z79.82 Long term (current) use of aspirin; Z79.02 Long term (current) use of antithrombotics/antiplatelets; Z96.641 Presence of right artificial hip joint
CPT/HCPCS: 36415; 71045; 72170; 73560; 80053; 81001; 83605; 83880; 84484; 85025; 85027; 85610; 85730; 87086; 96361; 96374; 99285; J0153; J7030; J7040

== ENCOUNTER 2023-09-08 13:27 | HOS | payer OTHER, MEDICARE, MEDICAID, SELFPAY ==
[2023-09-08] MEDS: HYDROmorphone HCL/PF (*CRX) 50 MG in SODIUM CHLORIDE 0.9% IV 95 ML IV CONT (16:04)
--- NOTE | 2023-09-08 17:32 | P.HP_ITS ---
H&P: HPI History of Present Illness Date/Time: 09/08/23 17:32 Chief Complaint: Uncontrolled dyspnea and restlessness. Narrative: 88-year-old female was admitted to acute care after fall at [facility]. Was found to be in SVT in emergency department. Did not tolerate a Mike in, had hypotension. Therefore was cardioverted. Did not maintain sinus rhythm before she required cardioversion again. No further attempts at cardioversion were made as she did not tolerate medications and cardioversion was not successful. Due to advanced COPD with oxygen requirement, cardiomyopathy, poor functional status, and advanced age patient and family opted for inpatient hospice care for control of dyspnea and anxiety. Patient notes she is extremely anxious. Asks for Xanax. Was taking Xanax for approximately 40 years. Goes into withdrawal whenever she stops it. Does note she feels short of breath at rest. Feels weak and tired. Denied pain. Review of Systems Review of Systems: All systems reviewed & are unremarkable except as noted in HPI and below PMFSH Past Medical History Medical History (Updated 09/08/23 @ 17:56 by Zhou Davison MD) Anxiety Atrial fibrillation Benzodiazepine dependence Chronic obstructive pulmonary disease Chronic respiratory failure with hypoxia, on home oxygen therapy Coronary artery disease With reported history of myocardial infarction. Degenerative joint disease Diastolic congestive heart failure Gout Hyperlipidemia Hypertension Hypothyroidism Osteoporosis Paroxysmal supraventricular tachycardia Scoliosis Surgical History Surgical History History of right hip replacement Family History Family History Father , age 41. Acute myocardial infarction Social History Social History (Updated 09/08/23 @ 17:33 by Zhou Davison MD) Social History: Code status: DNR/DNI Smoking packs per day: 0.5 Smoking cigarettes per day: 10.0 Years smoked: 60 Smoking pack-years: 30.00 Smoking status: Former smoker Alcohol intake: never Substance use: never Do You Feel Safe in your Home?: Yes Lack of Transportation: No Lack of Food: Never True Current Housing: I Have Housing Concerned About Future Housing: No Difficulty Paying Gas/Electric Bills: No Difficulty Paying for Meds: No Currently Unemployed: No Education: Don't Know Difficulty w/ Childcare or Family Care: No Spiritual care concerns: No Meds Home Medications and Allergies Home Medications Medication Instructions Recorded Confirmed Type acetaminophen 325 mg tablet 650 mg PO Q6H PRN Pain (Scale 03/08/23 09/08/23 Hist ory Score 1-3) albuterol sulfate 90 mcg/actuation 2 puff inhalation QID PRN 03/08/23 09/08/23 History aerosol inhaler Shortness Of Breath allopurinol 100 mg tablet 100 mg PO DAILY 03/08/23 03/08/23 History aluminum-mag hydroxide-simethicone 15 ml PO QID PRN Acid Reflux 03/08/23 09/08/23 History 200 mg-200 mg-20 mg/5 mL oral susp artificial tears with lanolin eye 1 applic EACH EYE Q1-4H PRN Dry 03/08/23 09/08/23 History ointment Eye(S) bisacodyl 10 mg rectal suppository 10 mg RECTAL DAILY PRN Constipation 03/08/23 09/08/23 History clopidogrel 75 mg tablet 75 mg PO DAILY 03/08/23 09/08/23 History clotrimazole-betamethasone 1 1 applic topical BID PRN Dry Skin 03/08/23 09/08/23 History %-0.05 % topical cream cyanocobalamin (vitamin B-12) 1,000 mcg PO DAILY 03/08/23 09/08/23 History 1,000 mcg tablet ferrous sulfate 325 mg (65 mg 325 mg PO DAILY 03/08/23 09/08/23 History iron) tablet fluticasone propionate 50 2 spray intranasal DAILY 03/08/23 09/08/23 History mcg/actuation nasal spray,suspension (Flonase Allergy Relief) furosemide 20 mg tablet 20 mg PO DAILY 03/08/23 09/08/23 History guaifenesin 100 mg/5 mL oral liquid 200 mg PO Q4H PRN Congestion 03/08/23 09/08/23 History ipratropium 0.5 mg-albuterol 3 mg 3 ml inhalation Q6H PRN Shortness 03/08/23 09/08/23 History (2.5 mg base)/3 mL nebulization Of Breath soln levothyroxine 100 mcg tablet 100 mcg PO 0600 03/08/23 09/08/23 History melatonin 3 mg tablet 3 mg PO HS 03/08/23 09/08/23 History multivitamin with minerals (Daily 1 tablet PO DAILY 03/08/23 09/08/23 History Multivitamin-Minerals tablet) nitroglycerin 0.4 mg sublingual 0.4 mg sublingual Q5-15M PRN Chest 03/08/23 09/08/23 History tablet Pain olopatadine 0.1 % eye drops 1 drp EACH EYE DAILY 03/08/23 09/08/23 History omeprazole 20 mg tablet,delayed 20 mg PO 0600 03/08/23 09/08/23 History release potassium chloride 20 mEq 40 meq PO DAILY 03/08/23 09/08/23 History tablet,extended release sennosides 8.6 mg tablet (senna) 8.6 mg PO HS 03/08/23 09/08/23 History simethicone 80 mg chewable tablet 80 mg PO DAILY PRN Abdominal 03/08/23 09/08/23 History Discomfort sodium chloride 0.65 % nasal spray 2 spray intranasal Q2H PRN Dry 03/08/23 09/08/23 History aerosol Nasal Passages tolterodine 2 mg tablet 2 mg PO DAILY 03/08/23 03/08/23 History alprazolam 0.25 mg tablet 0.25 mg PO TID #20 tabs 03/12/23 09/08/23 Rx aspirin 81 mg tablet,delayed 81 mg PO QAM 30 days #30 tabs 03/12/23 09/08/23 Rx release sacubitril 24 mg-valsartan 26 mg 1 tablet PO Q12HR 30 days #60 tabs 03/12/23 09/08/23 Rx tablet (Entresto) metoprolol tartrate 50 mg tablet 50 mg PO BID 09/08/23 09/08/23 History sertraline 25 mg tablet 25 mg PO DAILY 09/08/23 09/08/23 History Allergies Allergy/AdvReac Type Severity Reaction Status Date / Time codeine Allergy Unknown Unknown Verified 03/08/23 15:16 Iodinated Contrast Media Allergy Unknown Verified 09/08/23 07:33 lovastatin Allergy Unknown Verified 03/08/23 15:37 Penicillins Allergy Unknown Verified 03/08/23 15:37 Exam Narrative: HEENT:PERRL, sclerae nonicteric, pharyngeal mucosa pink and intact NECK: No JVD CHEST: Clear to auscultation. Normal effort. HEART: NL S1/S2, regular, tachycardic, no murmur ABDOMEN: BS+, soft, nontender, no mass, no bruits EXTREMITIES: No cyanosis, edema, or clubbing NEUROLOGIC: CN intact and symmetric to inspection. MUSCULOSKELETAL: No gross deformity to visual inspection. PSYCH: Drowsy but arouses easily. Oriented to person place and time and situation. Assessment and Plan Assessment and plan (1) Palliative care encounter: Code(s): Z51.5 - Encounter for palliative care Status: Acute Assessment and Plan: * Meets inpatient hospice requirement due to requiring continuous IV hydromorphone for control of dyspnea. * Requires scheduled benzodiazepines due to chronic dependence. * 09/08/2023 discussed care with patient and son at bedside. (2) Cardiomyopathy: Code(s): I42.9 - Cardiomyopathy, unspecified Status: Acute (3) Chronic obstructive pulmonary disease: Code(s): J44.9 - Chronic obstructive pulmonary disease, unspecified Status: Acute (4) SVT (supraventricular tachycardia): Code(s): I47.10 - Supraventricular tachycardia, unspecified Status: Acute (5) Chronic respiratory failure with hypoxia, on home oxygen therapy: Code(s): J96.11 - Chronic respiratory failure with hypoxia; Z99.81 - Dependence on supplemental oxygen Status: Acute (6) Benzodiazepine dependence: Code(s): F13.20 - Sedative, hypnotic or anxiolytic dependence, uncomplicated Status: Acute (7) Acute kidney injury superimposed on chronic kidney disease: Code(s): N17.9 - Acute kidney failure, unspecified; N18.9 - Chronic kidney disease, unspecified Status: Acute (8) Hypertension: Qualifiers: Hypertension type: primary hypertension Qualified Code(s): I10 - Essential (primary) hypertension Code(s): I10 - Essential (primary) hypertension Status: Acute
[2023-09-08] MEDS: diazePAM INJ (*CRX) 10 MG/2 ML SYRINGE 5 MG IV PUSH (18:29)
[2023-09-08 20:00] VITALS: BP 109/78; PULSE 178; RESP 22; TEMP 36.4; O2SAT 94; O2SAT 96
[2023-09-09 08:00] VITALS: PULSE 181; O2SAT 90
[2023-09-09] MEDS: diazePAM INJ (*CRX) 10 MG/2 ML SYRINGE 5 MG IV PUSH ×2 (08:55→20:28)
--- NOTE | 2023-09-09 09:32 | PC.NURSE ---
Iv access infiltrated. Attempted to regain access with no success. Called vascular access nurse Jose to get new Iv access.
[2023-09-09 13:00] VITALS: BP 75/49; PULSE 78; RESP 12; TEMP 36.6; O2SAT 95
[2023-09-09] MEDS: HYDROmorphone HCL/PF (*CRX) 50 MG in SODIUM CHLORIDE 0.9% IV 95 ML IV CONT (15:26)
--- NOTE | 2023-09-09 15:56 | P.PNIM_ITS ---
Progress Note: A&P Assessment and Plan (1) Palliative care encounter: Code(s): Z51.5 - Encounter for palliative care Status: Acute Assessment and Plan: * Meets inpatient hospice requirement due to requiring continuous IV hydromorphone for control of dyspnea. * Requires scheduled benzodiazepines due to chronic dependence. * 09/08/2023 discussed care with patient and son at bedside. * 09/09/2023 discussed care and prognosis with family at bedside. 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 Unresponsive today. Review of Systems Review of Systems: ROS unobtainable: Yes unobtainable due to medical condition Exam Narrative: HEENT: Atraumatic. NECK: No JVD. CHEST: Clear to auscultation. Normal effort. HEART: NL S1/S2, regular, tachycardic, no murmur ABDOMEN: BS+, soft, nontender, no mass, no bruits EXTREMITIES: No cyanosis, edema, or clubbing NEUROLOGIC: CN intact and symmetric to inspection. MUSCULOSKELETAL: No gross deformity to visual inspection. PSYCH: Unresponsive to verbal or tactile stimuli. Objective Data Vital Signs Vital Signs: Vital Signs - 24 hr 09/08/23 20:00 09/08/23 20:00 09/09/23 08:00 Temperature 97.5 F L Pulse Rate 178 H 181 H Respiratory Rate 22 H Blood Pressure 109/78 Pulse Oximetry 94 96 90 Oxygen Delivery Nasal Cannula Nasal Cannula Oxygen Flow Rate 2 2.5 09/09/23 13:00 Temperature 97.8 F Pulse Rate 78 Respiratory Rate 12 Blood Pressure 75/49 L Pulse Oximetry 95 Oxygen Delivery Oxygen Flow Rate Intake/Output Intake/Output: Intake & Output 09/06/23 09/07/23 09/08/23 09/09/23 23:59 23:59 23:59 23:59 Intake Total 0 11.4 Balance 0 11.4 Meds/Results Medications: Active Medications Generic Name Dose Route Start Last Admin Trade Name Freq PRN Reason Stop Dose Admin Artificial Tears 0 drop 09/08/23 14:37 Artificial Tears Ophth Soln 15 Ml Bottle EACH EYE Q12H PRN Dry Eye(s) Bisacodyl 10 mg 09/08/23 14:30 Bisacodyl 10 Mg Suppository RECTAL DAILY PRN Constipation Diazepam 5 mg 09/08/23 14:31 Diazepam Inj (*Crx) 10 Mg/2 Ml Syringe IV PUSH Q4HR PRN RESTLESSNESS Diazepam 5 mg 09/08/23 18:05 09/09/23 08:55 Diazepam Inj (*Crx) 10 Mg/2 Ml Syringe IV PUSH 5 mg Q12HR MILAD Administration Glycopyrrolate 0.1 mg 09/08/23 14:30 Glycopyrrolate Inj (*Sp) 0.2 Mg/Ml Vial IV PUSH Q4H PRN secretions Hydromorphone HCl 0.5 mg 09/08/23 14:32 Hydromorphone Hcl Inj (*Crx) 1 Mg/Ml Syr IV PUSH Q2H PRN Pain/dyspnea Hydromorphone HCl 50 mg/ 100 mls @ 0.5 mls/hr 09/08/23 14:45 09/09/23 15:26 Sodium Chloride IV CONT 0.25 mg/hr .Q24H MILAD 0.5 mls/hr Administration 0.25 MG/HR Prochlorperazine Edisylate 10 mg 09/08/23 14:30 Prochlorperazine Edisylate 10 Mg/2 Ml Vial IV PUSH Q6H PRN Nausea And Vomiting
[2023-09-09 20:00] VITALS: BP 73/44; PULSE 104; PULSE 78; RESP 12; RESP 14; TEMP 36.6; O2SAT 91; O2SAT 95
[2023-09-10 08:00] VITALS: BP 63/32; PULSE 66; RESP 14; TEMP 35.7; O2SAT 76
--- NOTE | 2023-09-10 16:24 | PM.DDS ---
Discharge Summary Probable Cause of Probable Cause of : congestive heart failure Summary Hospital Course: Admitted inpatient hospice service for uncontrolled dyspnea and anxiety. Medications titrated to comfort. Mrs. Cantor peacefully.
== END 2023-09-10 12:30 | disposition expired | DRG 951 ==
PROVIDERS: Admitting Provider Internal Medicine; PCP Internal Medicine; Visit Provider Internal Medicine
DX: Z51.5 Encounter for palliative care (principal); I50.32 Chronic diastolic (congestive) heart failure; I47.10 Supraventricular tachycardia, unspecified; J96.11 Chronic respiratory failure with hypoxia; N17.9 Acute kidney failure, unspecified; I11.0 Hypertensive heart disease with heart failure; E78.5 Hyperlipidemia, unspecified; I48.91 Unspecified atrial fibrillation; J44.9 Chronic obstructive pulmonary disease, unspecified; Z87.891 Personal history of nicotine dependence; Z99.81 Dependence on supplemental oxygen
CPT/HCPCS: A9270; J1170; J3360